=== PATIENT | female | born 1975 | race Caucasian/White ===

== ENCOUNTER 2022-09-12 13:00 | Observation (INO) | payer BC ==
[2022-09-12] MEDS ORDERED: PROVENTIL 2.5 MG/3 ML NEB IH ONE ×6 (13:03→17:05)
[2022-09-12 14:14] LABS: Absolute Neutrophil Ct (ANC) 8.94 x10^3/uL (1.4-6.9); Basophil (Absolute #) 0.04 x10^3/uL (0-0.4); Eosinophil % 4.3 % (0.00-5.0); Eosinophil (Absolute #) 0.51 x10^3/uL (0-0.5); Hematocrit 42.2 % (35-47); Lymphocyte (Absolute #) 1.62 x10^3/uL (1.0-4.6); Lymphocytes % 13.6 % (24.0-44.0); Mean Cell Volume 79.9 fL (78-100); Mean Corpuscular Hemoglobin 24.6 pg (26-32); Mean Corpuscular Hgb Concent. 30.8 g/dL (32-36); Mean Platelet Volume 10.9 fL (7.5-11.0); Monocyte (Absolute #) 0.75 x10^3/uL (0.0-1.3); Monocytes % 6.3 % (0.0-12.0); Neutrophil % 74.9 % (36.0-66.0); Platelet Count 220 x10^3/uL (150-450); Red Blood Count 5.28 x10^6/uL (4.1-5.4); Red Cell Distribution Width 15.1 % (11.5-14.0); White Blood Count 11.9 x10^3/uL (4.0-10.5)
[2022-09-12 14:38] LABS: ALBUMIN 4.4 g/dL (3.5-5.0); ALKALINE PHOSPHATASE 133 U/L (38-126); ANION GAP 12.2 MEQ/L (5-15); BLOOD UREA NITROGEN 10 mg/dL (7-17); CHLORIDE 102 mmol/L (98-107); Calcium 8.7 mg/dL (8.4-10.2); Carbon Dioxide 27 mmol/L (22-30); Creatinine 1 0.47 mg/dL (0.52-1.04); EST GLOMERULAR FILTRATION RATE > 60.0 ML/MIN; Glucose 116 mg/dL (74-106); Potassium 3.8 mmol/L (3.5-5.1); SGOT/AST 36 U/L (14-36); SGPT/ALT 31 U/L (0-35); SODIUM 137 mmol/L (137-145); Total Protein 7.9 g/dL (6.3-8.2)
--- NOTE | 2022-09-12 14:45 | XRAY ---
Indication: Short of breath. Comparison: August 29, 2022 Portable chest again demonstrates left midlung subsegmental atelectasis/scarring less than before. Remaining heart and lungs unremarkable. No new/acute findings.
[2022-09-12 14:50] LABS: INFLUENZA A NEGATIVE (NEGATIVE); INFLUENZA B NEGATIVE (NEGATIVE); RESPIRATORY SYNCTIAL VIRUS NEGATIVE (Negative); SARS-CoV-2 Xpert Express NEGATIVE (NEGATIVE)
--- NOTE | 2022-09-12 15:08 | ERPHSYRPT ---
- History of Present Illness Time Seen by Provider: 09/12/22 13:20 Source: patient Exam Limitations: no limitations Patient Subjective Stated Complaint: shortness of breath x1 week, worse today. cough as well. dx with bronchitis 1 week ago. has been on steroid and inhaler since dx. Triage Nursing Assessment: Patient presents to ED via wheelchair from [facility] for SOB. Pt wheeled to bed 8, moved self to bed, placed in gown and on monitor. Audible wheezing noted. RT called and came and gave breathing tx. 93% on room air prior to breathing tx, tachypnea noted, rate of 22. Skin pink, warm, dry. Vitals stable. States dx with bronchitis 1 week ago, prescribed steroid and inhaler. Finished with steroid rx, but has had shortness of breath and p roductive cough worse since waking up this morning. Went to [facility], was given steroid shot, but [facility] staff states pt o2 sat was 88% prior to leaving [facility] so she was brought here. Respirations easier after nebulizer treatment. Pt denies fever, headache, sore throat or body aches. After neb treatment, pt noted to be 95% on RA. Physician History: Please a 47-year-old female presents emergency department for evaluation of shortness of breath. Patient states she was diagnosed with bronchitis approximately 1 week ago. Patient was treated with steroids and antibiotics. Also received an inhaler. Symptoms were stable however patient states her shortness of breath became acutely worse. Patient went to [facility] and was evaluated. Patient received a dose of steroids. She was observed to have a O2 sat of 88%. Patient was then sent to our ED for further evaluation and treatment. Patient upon arrival was wheezing. She received a breathing treatment. We will continue work-up which will include a D-dimer. Significant other at bedside. They voiced no other complaints or concerns at this time. Portions of this note were created with voice recognition technology. There may be grammatical, spelling, punctuation or sound alike errors Timing/Duration: week(s) (1 week) Activities at Onset: none Severity of Dyspnea-Max: moderate Severity of Dyspnea-Current: mild Possible Cause: occasional episodes Modifying Factors: Improves With: activity Associated Symptoms: denies symptoms Allergies/Adverse Reactions: No Known Drug Allergies Allergy (Unverified 09/12/22 13:10) Home Medications: Omeprazole 40 mg PO DAILY 09/12/22 [History] Sertraline HCl [Zoloft] 100 mg PO DAILY 09/12/22 [History] Hx Influenza Vaccination/Date Given: No Travel Risk - International Travel Have you traveled outside of the country in past 3 weeks: No - Coronavirus Screening Symptoms: Cough: New Onset, Shortness of Breath Close contact with a COVID-19 positive Pt in past 14-21 Days: No - Vaccine Status Have you recieved a Covid-19 vaccination: No - Review of Systems Constitutional: No Symptoms, No Fever, No Chills Eyes: No Symptoms Ears, Nose, & Throat: No Symptoms Respiratory: No Symptoms, No Cough, No Dyspnea Cardiac: No Symptoms, No Chest Pain, No Edema, No Syncope Abdominal/Gastrointestinal: No Symptoms, No Abdominal Pain, No Nausea, No Vomiting, No Diarrhea Genitourinary Symptoms: No Symptoms, No Dysuria Musculoskeletal: No Symptoms, No Back Pain, No Neck Pain Skin: No Symptoms, No Rash Neurological: No Symptoms, No Dizziness, No Focal Weakness, No Sensory Changes Psychological: No Symptoms Endocrine: No Symptoms Hematologic/Lymphatic: No Symptoms Immunological/Allergic: No Symptoms All Other Systems: Reviewed and Negative - Past Medical History Pertinent Past Medical History: Yes Other Medical History: a fib - Past Surgical History Past Surgical History: Yes Gastrointestinal: Cholecystectomy Other Surgical History: lithotripsy - Social History Smoking Status: Never smoker Drug Use: none Patient Lives Alone: No - Female History Hx Last Menstrual Period: Aug 09 Hx Now: No - Nursing Vital Signs Nursing Vital Signs: Initial Vital Signs Temperature 98.5 F 09/12/22 13:03 Pulse Rate 86 09/12/22 13:03 Respiratory Rate 22 09/12/22 13:03 Blood Pressure 170/108 09/12/22 13:03 O2 Sat by Pulse Oximetry 94 L 09/12/22 13:03 Pain Scale Pain Intensity 2 - Physical Exam General Appearance: mild distress, alert Eye Exam: PERRL/EOMI Ears, Nose, Throat Exam: hearing grossly normal, normal ENT inspection, normal pharynx Neck Exam: normal inspection, supple, full range of motion Respiratory Exam: diminished breath sounds, wheezing Cardiovascular/Chest Exam: normal heart sounds, regular rate/rhythm Abdominal/Gastrointestinal Exam: soft, No tenderness, No distention, No mass Extremity Exam: non-tender, normal range of motion, normal inspection, no calf tenderness, no pedal edema Neurologic Exam: alert, oriented x 3, cooperative, seo manager II-XII nml as tested, sensation nml, No motor deficits Skin Exam: normal color, warm, No dry SpO2 Interpretation: normal SpO2: 97 O2 Delivery: Room Air - Course Nursing assessment & vital signs reviewed: Yes EKG Interpreted by Me: RATE (83), Sinus Rhythm, NORMAL AXIS, NORMAL INTERVALS - CT Exams Chest CT Interpretation: Tele-radiologist Report (Borderline cardiomegaly, no pulm onary embolus. Spine arthritis. Diffuse fatty liver. Splenomegaly) Ordered Tests: Active Orders 24 hr Category Date Time Status Drill Sharpener STAT Care 09/12/22 13:38 Active EKG-ER Only STAT Care 09/12/22 13:36 Active IV Insertion STAT Care 09/12/22 13:36 Active Pulse Oximetry (ED) STAT Care 09/12/22 13:36 Active CHEST 1 VIEW (PORTABLE) Stat Exams 09/12/22 13:37 Completed CHEST WITH CONTRAST [CT] Stat Exams 09/12/22 15:00 Completed BLOOD CULTURE Stat Lab 09/12/22 14:06 Received CBC W DIFF Stat Lab 09/12/22 14:06 Completed CMP Stat Lab 09/12/22 14:06 Completed D-DIMER QUANTITATIVE Stat Lab 09/12/22 14:06 Completed NT PRO BNP Stat Lab 09/12/22 14:06 Completed TROPONIN Q4H Lab 09/12/22 14:06 Completed TROPONIN Q4H Lab 09/12/22 17:45 Ordered TROPONIN Q4H Lab 09/12/22 21:45 Ordered Respiratory Therapy Assessment DAILY RT 09/12/22 13:07 Completed Respiratory Therapy Assessment DAILY RT 09/12/22 14:06 Active Transfer Order Routine Transfer 09/12/22 Ordered Medication Summary Generic Name Dose Route Start Last Admin Trade Name Freq PRN Reason Stop Dose Admin Magnesium Sulfate/Dextrose 100 mls @ 100 mls/hr 09/12/22 17:00 09/12/22 17:25 Magnesium 1 Gm / 100 Ml D5w IV 09/12/22 18:59 100 mls/hr Q1H REKHA Administration Ceftriaxone Sodium/Dextrose 2 g in 50 mls @ 100 mls/hr 09/12/22 17:36 Rocephin 2 Gm-D5w 50ml Bag IV 09/12/22 18:05 STAT STA Azithromycin 500 mg in 250 mls @ 250 mls/hr 09/12/22 17:36 Zithromax 500 Mg/ 250 Ml Nacl Premix IV 09/12/22 18:35 STAT STA Discontinued Medications Generic Name Dose Route Start Last Admin Trade Name Freq PRN Reason Stop Dose Admin Albuterol Sulfate 2.5 mg 09/12/22 13:03 09/12/22 13:06 Albuterol Sulfate 2.5 Mg/3 Ml Neb IH 09/12/22 13:04 2.5 mg STAT ONE Administration Albuterol Sulfate 2.5 mg 09/12/22 13:39 09/12/22 14:05 Albuterol Sulfate 2.5 Mg/3 Ml Neb IH 09/12/22 13:40 2.5 mg STAT ONE Administration Albuterol Sulfate Confirm 09/12/22 14:04 Albuterol Sulfate 2.5 Mg/3 Ml Neb Administered 09/12/22 14:05 Dose 2.5 mg IH .STK-MED ONE Albuterol Sulfate Confirm 09/12/22 13:03 Albuterol Sulfate 2.5 Mg/3 Ml Neb Administered 09/12/22 13:04 Dose 2.5 mg IH .STK-MED ONE Albuterol Sulfate 2.5 mg 09/12/22 16:43 09/12/22 17:06 Albuterol Sulfate 2.5 Mg/3 Ml Neb IH 09/12/22 16:44 2.5 mg STAT ONE Administration Albuterol Sulfate Confirm 09/12/22 17:05 Albuterol Sulfate 2.5 Mg/3 Ml Neb Administered 09/12/22 17:06 Dose 2.5 mg IH .STK-MED ONE Lab/Rad Data: Laboratory Result Diagrams 09/12/22 14:06 09/12/22 14:06 Laboratory Results 09/12/22 09/12/22 09/12/22 Range/Units 14:06 14:06 14:06 WBC (4.0-10.5) x10^3/uL RBC (4.1-5.4) x10^6/uL Hgb (12.0-16.0) g/dL Hct (35-47) % MCV (78-100) fL MCH (26-32) pg MCHC (32-36) g/dL RDW (11.5-14.0) % Plt Count (150-450) x10^3/uL MPV (7.5-11.0) fL Gran % (36.0-66.0) % Immature Gran % (Auto) (0.00-0.4) % Nucleat RBC Rel Count (0.00-0.1) % Eos # (Auto) (0-0.5) x10^3/uL Immature Gran # (Auto) (0.00-0.03) x10^3u/L Absolute Lymphs (auto) (1.0-4.6) x10^3/uL Absolute Monos (auto) (0.0-1.3) x10^3/uL Absolute Nucleated RBC (0.00-0.01) x10^3u/L Lymphocytes % (24.0-44.0) % Monocytes % (0.0-12.0) % Eosinophils % (0.00-5.0) % Basophils % (0.0-0.4) % Absolute Granulocytes (1.4-6.9) x10^3/uL Basophils # (0-0.4) x10^3/uL D-Dimer 0.94 H* (0.0-0.50) mg/L Sodium (137-145) mmol/L Potassium (3.5-5.1) mmol/L Chloride (98-107) mmol/L Carbon Dioxide (22-30) mmol/L Anion Gap (5-15) MEQ/L BUN (7-17) mg/dL Creatinine (0.52-1.04) mg/dL Estimated GFR ML/MIN Glucose (74-106) mg/dL Calcium (8.4-10.2) mg/dL Total Bilirubin (0.2-1.3) mg/dL AST (14-36) U/L ALT (0-35) U/L Alkaline Phosphatase (38-126) U/L Troponin I < 0.012 (0.000-0.034) ng/mL NT-Pro-B Natriuret Pep (0-450) pg/mL Serum Total Protein (6.3-8.2) g/dL Albumin (3.5-5.0) g/dL Influenza Type A Ag NEGATIVE (NEGATIVE) Influenza Type B Ag NEGATIVE (NEGATIVE) RSV (PCR) NEGATIVE (Negative) SARS-CoV-2 (PCR) NEGATIVE (NEGATIVE) 09/12/22 09/12/22 Range/Units 14:06 14:06 WBC 11.9 H (4.0-10.5) x10^3/uL RBC 5.28 (4.1-5.4) x10^6/uL Hgb 13.0 (12.0-16.0) g/dL Hct 42.2 (35-47) % MCV 79.9 (78-100) fL MCH 24.6 L (26-32) pg MCHC 30.8 L (32-36) g/dL RDW 15.1 H (11.5-14.0) % Plt Count 220 (150-450) x10^3/uL MPV 10.9 (7.5-11.0) fL Gran % 74.9 H (36.0-66.0) % Immature Gran % (Auto) 0.6 H (0.00-0.4) % Nucleat RBC Rel Count 0.0 (0.00-0.1) % Eos # (Auto) 0.51 H (0-0.5) x10^3/uL Immature Gran # (Auto) 0.07 H (0.00-0.03) x10^3u/L Absolute Lymphs (auto) 1.62 (1.0-4.6) x10^3/uL Absolute Monos (auto) 0.75 (0.0-1.3) x10^3/uL Absolute Nucleated RBC 0.00 (0.00-0.01) x10^3u/L Lymphocytes % 13.6 L (24.0-44.0) % Monocytes % 6.3 (0.0-12.0) % Eosinophils % 4.3 (0.00-5.0) % Basophils % 0.3 (0.0-0.4) % Absolute Granulocytes 8.94 H (1.4-6.9) x10^3/uL Basophils # 0.04 (0-0.4) x10^3/uL D-Dimer (0.0-0.50) mg/L Sodium 137 (137-145) mmol/L Potassium 3.8 (3.5-5.1) mmol/L Chloride 102 (98-107) mmol/L Carbon Dioxide 27 (22-30) mmol/L Anion Gap 12.2 (5-15) MEQ/L BUN 10 (7-17) mg/dL Creatinine 0.47 L (0.52-1.04) mg/dL Estimated GFR > 60.0 ML/MIN Glucose 116 H (74-106) mg/dL Calcium 8.7 (8.4-10.2) mg/dL Total Bilirubin 0.90 (0.2-1.3) mg/dL AST 36 (14-36) U/L ALT 31 (0-35) U/L Alkaline Phosphatase 133 H (38-126) U/L Troponin I (0.000-0.034) ng/mL NT-Pro-B Natriuret Pep 95.0 (0-450) pg/mL Serum Total Protein 7.9 (6.3-8.2) g/dL Albumin 4.4 (3.5-5.0) g/dL Influenza Type A Ag (NEGATIVE) Influenza Type B Ag (NEGATIVE) RSV (PCR) (Negative) SARS-CoV-2 (PCR) (NEGATIVE) - Progress Progress: improved Air Movement: good Progress Note: Patient reassessed. Patient continues to wheeze. Breath sounds diminished. Patient ambulated in our ED and desaturated down to 88%. Patient was significantly short of breath. CT chest negative for PE. Patient treated in our ED for approximately 4 to 5 hours. There was some improvement. However patient does not meet our discharge criteria. Patient will be admitted for further evaluation and treatment. Case discussed with Dr. Mills who accepts patient to observation. Plan of care discussed with patient. She agrees to admission at [facility] for further evaluation and gera tment. Portions of this note were created with voice recognition technology. There may be grammatical, spelling, punctuation or sound alike errors 09/12/22 17:37 Blood Culture(s) Obtained: No Antibiotics given: No Counseled pt/family regarding: lab results, diagnosis, need for follow-up, rad results - Departure Departure Disposition: Home Clinical Impression: Bronchitis Condition: Stable Critical Care Time: No Referrals: DOCTOR,NO FAMILY [Primary Care Provider] - Follow up/PCP as directed LALITO FERNANDEZ [ACTIVE STAFF] - Follow up/PCP as directed Additional Instructions: Discharge/Care Plan AMRY ODELL was seen on 09/12/22 in the Emergency Room. The patient was counseled regarding Diagnosis,Lab results, Imaging studies, need for follow up and when to return to the Emergency Room. Prescriptions given: Discharge Note I have spoken with the patient and/or caregivers. I have explained the patient's condition, diagnosis and treatment plan based on the information available to me at this time. I have answered the patient's and/or caregiver's questions and addressed any concerns. The patient and/or caregivers have as good understanding of the patient's diagnosis, condition and treatment plan as can be expected at this point. The vital signs have been stable. The patient's condition is stable and appropriate for discharge from the emergency department. The patient will pursue further outpatient evaluation with the primary care physician or other designated or consulting physician as outlined in the dis charge instructions. The patient and/or caregivers are agreeable to this plan of care and follow-up instructions have been explained in detail. The patient and/or caregivers have received these instruction. The patient/and or caregivers are aware that any significant change in condition or worsening of symptoms should prompt an immediate return to this or the closest emergency department or call 911.
--- NOTE | 2022-09-12 16:17 | XRAY ---
Indication: Short of breath. Elevated d-dimer. Atrial fibrillation. Multiple contiguous axial images obtained through the chest using 100 cc Isovue 370 contrast and PE protocol. Suboptimal opacification of the pulmonary arteries and mild diffuse respiration artifact limits evaluation for pulmonary embolus. No obvious central pulmonary embolus. Heart is borderline enlarged. Aorta is normal in course and caliber. No pathologic mediastinal/hilar lymphadenopathy. Lungs demonstrates minimal left mid to lower lung and lesser degree inferior right upper lobe subsegmental atelectasis/scarring. Small nonspecific left effusion. No pneumothorax. Bony thorax intact with mild degenerative changes throughout the spine. Limited upper abdomen demonstrates diffuse fatty liver and 15.1 cm splenomegaly. Impression: 1. Pulmonary embolus limited by suboptimal contrast opacification and respiration artifact. No obvious central pulmonary embolus. 2. Borderline cardiomegaly, minimal bilateral subsegmental atelectasis/scarring, and small nonspecific left effusion. 3. Incidental fatty liver and splenomegaly.
[2022-09-12] MEDS ORDERED: Magnesium 1 Gm / 100 Ml D5W*** 100 ML IV ONE ×2 (16:53→17:25)
[2022-09-12] MEDS: Magnesium 1 Gm / 100 Ml D5W*** 100 ML IV SCH ×2 (16:54→17:25)
[2022-09-12] MEDS ORDERED: ROCEPHIN 2 Gm-D5w 50ML BAG** 2 G/50 ML IVPB IV STA (17:36)
[2022-09-12] MEDS ORDERED: Zithromax 500 MG/ 250 ML NaCl Premix 500 MG/250 ML IVPB IV STA (17:36)
[2022-09-12] MEDS ORDERED: solu-MEDROL ONE (18:58)
[2022-09-12] MEDS ORDERED: ROCEPHIN 2 Gm-D5w 50ML BAG** 2 G/50 ML IVPB IV ONE (19:00)
[2022-09-12] MEDS ORDERED: PROVENTIL 2.5 MG/3 ML NEB IH SCH (19:00)
[2022-09-12] MEDS ORDERED: Sterile H2O 10 ml IJ ONE (19:01)
[2022-09-12] MEDS: solu-MEDROL 60 MG, Sterile H2O 10 ml 2 ML IV SCH ×2 (19:07)
[2022-09-12] MEDS: Zithromax 500 MG/ 250 ML NaCl Premix 500 MG/250 ML IVPB IV SCH (19:43)
[2022-09-12] MEDS: TYLENOL 325 MG PO PRN (19:53)
[2022-09-12] MEDS ORDERED: Zofran 4 MG/2 ML VIAL IV PRN (20:32)
[2022-09-12] MEDS ORDERED: Lactated Ringers 1,000 ML IV ONE (20:32)
[2022-09-12] MEDS: Lactated Ringers 1,000 ML IV SCH (21:53)
[2022-09-12] MEDS: PROVENTIL 2.5 MG/3 ML NEB IH SCH (22:37)
[2022-09-13] MEDS: solu-MEDROL 60 MG, Sterile H2O 10 ml 2 ML IV SCH ×8 (00:03→17:16)
[2022-09-13] MEDS: PROVENTIL 2.5 MG/3 ML NEB IH SCH ×5 (03:35→18:25)
[2022-09-13 04:56] LABS: Hematocrit 39.1 % (35-47); Hemoglobin 12.1 g/dL (12.0-16.0); Mean Corpuscular Hemoglobin 24.7 pg (26-32); Mean Corpuscular Hgb Concent. 30.9 g/dL (32-36); Mean Platelet Volume 10.8 fL (7.5-11.0); Platelet Count 215 x10^3/uL (150-450); Red Blood Count 4.89 x10^6/uL (4.1-5.4); White Blood Count 14.6 x10^3/uL (4.0-10.5)
[2022-09-13 05:25] LABS: ALBUMIN 3.8 g/dL (3.5-5.0); ALKALINE PHOSPHATASE 117 U/L (38-126); BLOOD UREA NITROGEN 8 mg/dL (7-17); CHLORIDE 104 mmol/L (98-107); Calcium 8.4 mg/dL (8.4-10.2); Carbon Dioxide 27 mmol/L (22-30); Creatinine 1 0.43 mg/dL (0.52-1.04); EST GLOMERULAR FILTRATION RATE > 60.0 ML/MIN; Glucose 191 mg/dL (74-106); Potassium 4.3 mmol/L (3.5-5.1); SGOT/AST 23 U/L (14-36); SGPT/ALT 27 U/L (0-35); SODIUM 133 mmol/L (137-145); Total Protein 6.9 g/dL (6.3-8.2)
[2022-09-13] MEDS ORDERED: solu-MEDROL ONE ×2 (05:43)
[2022-09-13] MEDS ORDERED: Sterile H2O 10 ml IJ ONE ×2 (05:43)
[2022-09-13] MEDS ORDERED: PROVENTIL Solution 2.5 MG/0.5 ML IH ONE (06:44)
[2022-09-13] MEDS ORDERED: DUONEB 0.5-3 MG/3 ml Neb IH ONE (06:44)
[2022-09-13] MEDS: Lactated Ringers 1,000 ML IV SCH ×2 (08:26→18:17)
--- NOTE | 2022-09-13 09:07 | PCM.HP ---
History of Present Illness - Chief Complaint Chief Complaint: Bronchitis History of Present Illness: is a 47 year old female pt with obesity, GERD, and anxiety who was admitted through ER with respiratory infection. She has been wheezing since June - went to walk in clinic a couple of times, got steroids and nebulizers and would temporarily seem better then worsen. Yesterday she was worse again - went to , was wheezing and struggling to talk. Given steroid injection. In ER, given nebs x 3 and Mg, with 40mg IV steroid started BID. D-dimer was elevated, but CTA chest neg for PE. O2 down to 88% wtih walking (on RA). - Review of Systems Respiratory: Cough, Short Of Breath Abdominal/Gastrointestinal: Vomiting (x 1 yest) Neurological: Dizziness (with walking yesterday) Medications & Allergies Home Medications: Home Medication List Albuterol Sulfate 2.5 mg IH Q4H 09/12/22 [History Confirmed 09/12/22] Omeprazole 40 mg PO DAILY 09/12/22 [History Confirmed 09/12/22] Sertraline HCl [Zoloft] 100 mg PO DAILY 09/12/22 [History Confirmed 09/12/22] Allergies/Adverse Reactions: Allergies Allergy/AdvReac Type Severity Reaction Status Date / Time No Known Drug Allergies Allergy Unverified 09/12/22 13:10 - Past Medical History Past Medical History: Yes Comment: a fib stress induced where pt had to be cardioverted. 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 no arrythmias noted stated "stress induced" - Female History Hx Last Menstrual Period: Aug 09 Are you now?: No - Past Surgical History Past Surgical History: Yes GI Surgical History: Cholecystectomy Other Surgical History: lithotripsy - Social History Smoking Status: Never smoker Alcohol: Occasionally Drug Use: none - Physical Exam Vital Signs: Vital Signs - 24 hr Temp Pulse Resp BP Pulse Ox 09/13/22 07:19 97.9 F 90 16 124/77 93 L 09/13/22 06:53 90 16 93 L 09/13/22 04:00 96.9 F 78 16 130/64 91 L 09/13/22 03:35 94 H 17 95 09/12/22 23:15 96.2 F 97 H 16 107/61 91 L 09/12/22 22:40 94 H 16 95 12/19/22 18:22 97.5 F 86 16 135/74 95 09/12/22 18:10 86 16 95 09/12/22 17:57 97.5 F 92 H 18 135/74 93 L 09/12/22 17:39 97 09/12/22 17:12 79 22 126/72 100 09/12/22 17:10 84 20 94 L 09/12/22 16:05 68 20 140/72 98 09/12/22 15:09 98.5 F 74 20 144/87 98 09/12/22 14:30 98.5 F 78 22 148/88 97 09/12/22 14:12 95 09/12/22 14:06 92 H 22 94 L 09/12/22 13:07 88 24 94 L 09/12/22 13:03 98.5 F 86 22 170/108 93 L General Appearance: no apparent distress, obese Neurologic Exam: alert, oriented x 3, cooperative Eye Exam: eyes nml inspection Ears, Nose, Throat Exam: moist mucous membranes Neck Exam: normal inspection, non-tender, No lymphadenopathy, No thyromegaly Respiratory Exam: diminished breath sounds (good air exchange), No crackles/rales, No rhonchi, No wheezing Cardiovascular Exam: regular rate/rhythm, normal heart sounds, No murmur Gastrointestinal/Abdomen Exam: soft, normal bowel sounds, No tenderness, No distention, No mass, No guarding, No rebound Extremity Exam: normal inspection, No pedal edema, No swelling Skin Exam: normal color, warm, dry, No rash Results - Labs Lab/Micro Results: Lab Results-Last 24 Hours 09/12/22 09/12/22 09/12/22 Range/Units 14:06 14:06 14:06 WBC 11.9 H (4.0-10.5) x10^3/uL RBC 5.28 (4.1-5.4) x10^6/uL Hgb 13.0 (12.0-16.0) g/dL Hct 42.2 (35-47) % MCV 79.9 (78-100) fL MCH 24.6 L (26-32) pg MCHC 30.8 L (32-36) g/dL RDW 15.1 H (11.5-14.0) % Plt Count 220 (150-450) x10^3/uL MPV 10.9 (7.5-11.0) fL Gran % 74.9 H (36.0-66.0) % Immature Gran % (Auto) 0.6 H (0.00-0.4) % Nucleat RBC Rel Count 0.0 (0.00-0.1) % Eos # (Auto) 0.51 H (0-0.5) x10^3/uL Immature Gran # (Auto) 0.07 H (0.00-0.03) x10^3u/L Absolute Lymphs (auto) 1.62 (1.0-4.6) x10^3/uL Absolute Monos (auto) 0.75 (0.0-1.3) x10^3/uL Absolute Nucleated RBC 0.00 (0.00-0.01) x10^3u/L Lymphocytes % 13.6 L (24.0-44.0) % Monocytes % 6.3 (0.0-12.0) % Eosinophils % 4.3 (0.00-5.0) % Basophils % 0.3 (0.0-0.4) % Absolute Granulocytes 8.94 H (1.4-6.9) x10^3/uL Basophils # 0.04 (0-0.4) x10^3/uL D-Dimer 0.94 H* (0.0-0.50) mg/L Sodium 137 (137-145) mmol/L Potassium 3.8 (3.5-5.1) mmol/L Chloride 102 (98-107) mmol/L Carbon Dioxide 27 (22-30) mmol/L Anion Gap 12.2 (5-15) MEQ/L BUN 10 (7-17) mg/dL Creatinine 0.47 L (0.52-1.04) mg/dL Estimated GFR > 60.0 ML/MIN Glucose 116 H (74-106) mg/dL Calcium 8.7 (8.4-10.2) mg/dL Magnesium (1.6-2.3) mg/dL Total Bilirubin 0.90 (0.2-1.3) mg/dL AST 36 (14-36) U/L ALT 31 (0-35) U/L Alkaline Phosphatase 133 H (38-126) U/L Troponin I (0.000-0.034) ng/mL NT-Pro-B Natriuret Pep 95.0 (0-450) pg/mL Serum Total Protein 7.9 (6.3-8.2) g/dL Albumin 4.4 (3.5-5.0) g/dL Influenza Type A Ag (NEGATIVE) Influenza Type B Ag (NEGATIVE) RSV (PCR) (Negative) SARS-CoV-2 (PCR) (NEGATIVE) 09/12/22 09/12/22 09/12/22 Range/Units 14:06 14:06 19:08 WBC (4.0-10.5) x10^3/uL RBC (4.1-5.4) x10^6/uL Hgb (12.0-16.0) g/dL Hct (35-47) % MCV (78-100) fL MCH (26-32) pg MCHC (32-36) g/dL RDW (11.5-14.0) % Plt Count (150-450) x10^3/uL MPV (7.5-11.0) fL Gran % (36.0-66.0) % Immature Gran % (Auto) (0.00-0.4) % Nucleat RBC Rel Count (0.00-0.1) % Eos # (Auto) (0-0.5) x10^3/uL Immature Gran # (Auto) (0.00-0.03) x10^3u/L Absolute Lymphs (auto) (1.0-4.6) x10^3/uL Absolute Monos (auto) (0.0-1.3) x10^3/uL Absolute Nucleated RBC (0.00-0.01) x10^3u/L Lymphocytes % (24.0-44.0) % Monocytes % (0.0-12.0) % Eosinophils % (0.00-5.0) % Basophils % (0.0-0.4) % Absolute Granulocytes (1.4-6.9) x10^3/uL Basophils # (0-0.4) x10^3/uL D-Dimer (0.0-0.50) mg/L Sodium (137-145) mmol/L Potassium (3.5-5.1) mmol/L Chloride (98-107) mmol/L Carbon Dioxide (22-30) mmol/L Anion Gap (5-15) MEQ/L BUN (7-17) mg/dL Creatinine (0.52-1.04) mg/dL Estimated GFR ML/MIN Glucose (74-106) mg/dL Calcium (8.4-10.2) mg/dL Magnesium (1.6-2.3) mg/dL Total Bilirubin (0.2-1.3) mg/dL AST (14-36) U/L ALT (0-35) U/L Alkaline Phosphatase (38-126) U/L Troponin I < 0.012 < 0.012 (0.000-0.034) ng/mL NT-Pro-B Natriuret Pep (0-450) pg/mL Serum Total Protein (6.3-8.2) g/dL Albumin (3.5-5.0) g/dL Influenza Type A Ag NEGATIVE (NEGATIVE) Influenza Type B Ag NEGATIVE (NEGATIVE) RSV (PCR) NEGATIVE (Negative) SARS-CoV-2 (PCR) NEGATIVE (NEGATIVE) 09/12/22 09/13/22 09/13/22 Range/Units 20:29 04:30 04:30 WBC 14.6 H (4.0-10.5) x10^3/uL RBC 4.89 (4.1-5.4) x10^6/uL Hgb 12.1 (12.0-16.0) g/dL Hct 39.1 (35-47) % MCV 80.0 (78-100) fL MCH 24.7 L (26-32) pg MCHC 30.9 L (32-36) g/dL RDW 15.0 H (11.5-14.0) % Plt Count 215 (150-450) x10^3/uL MPV 10.8 (7.5-11.0) fL Gran % (36.0-66.0) % Immature Gran % (Auto) (0.00-0.4) % Nucleat RBC Rel Count (0.00-0.1) % Eos # (Auto) (0-0.5) x10^3/uL Immature Gran # (Auto) (0.00-0.03) x10^3u/L Absolute Lymphs (auto) (1.0-4.6) x10^3/uL Absolute Monos (auto) (0.0-1.3) x10^3/uL Absolute Nucleated RBC (0.00-0.01) x10^3u/L Lymphocytes % (24.0-44.0) % Monocytes % (0.0-12.0) % Eosinophils % (0.00-5.0) % Basophils % (0.0-0.4) % Absolute Granulocytes (1.4-6.9) x10^3/uL Basophils # (0-0.4) x10^3/uL D-Dimer (0.0-0.50) mg/L Sodium 133 L (137-145) mmol/L Potassium 4.3 (3.5-5.1) mmol/L Chloride 104 (98-107) mmol/L Carbon Dioxide 27 (22-30) mmol/L Anion Gap 7.0 (5-15) MEQ/L BUN 8 (7-17) mg/dL Creatinine 0.43 L (0.52-1.04) mg/dL Estimated GFR > 60.0 ML/MIN Glucose 191 H (74-106) mg/dL Calcium 8.4 (8.4-10.2) mg/dL Magnesium (1.6-2.3) mg/dL Total Bilirubin 0.40 (0.2-1.3) mg/dL AST 23 (14-36) U/L ALT 27 (0-35) U/L Alkaline Phosphatase 117 (38-126) U/L Troponin I < 0.012 (0.000-0.034) ng/mL NT-Pro-B Natriuret Pep (0-450) pg/mL Serum Total Protein 6.9 (6.3-8.2) g/dL Albumin 3.8 (3.5-5.0) g/dL Influenza Type A Ag (NEGATIVE) Influenza Type B Ag (NEGATIVE) RSV (PCR) (Negative) SARS-CoV-2 (PCR) (NEGATIVE) 09/13/22 Range/Units 04:30 WBC (4.0-10.5) x10^3/uL RBC (4.1-5.4) x10^6/uL Hgb (12.0-16.0) g/dL Hct (35-47) % MCV (78-100) fL MCH (26-32) pg MCHC (32-36) g/dL RDW (11.5-14.0) % Plt Count (150-450) x10^3/uL MPV (7.5-11.0) fL Gran % (36.0-66.0) % Immature Gran % (Auto) (0.00-0.4) % Nucleat RBC Rel Count (0.00-0.1) % Eos # (Auto) (0-0.5) x10^3/uL Immature Gran # (Auto) (0.00-0.03) x10^3u/L Absolute Lymphs (auto) (1.0-4.6) x10^3/uL Absolute Monos (auto) (0.0-1.3) x10^3/uL Absolute Nucleated RBC (0.00-0.01) x10^3u/L Lymphocytes % (24.0-44.0) % Monocytes % (0.0-12.0) % Eosinophils % (0.00-5.0) % Basophils % (0.0-0.4) % Absolute Granulocytes (1.4-6.9) x10^3/uL Basophils # (0-0.4) x10^3/uL D-Dimer (0.0-0.50) mg/L Sodium (137-145) mmol/L Potassium (3.5-5.1) mmol/L Chloride (98-107) mmol/L Carbon Dioxide (22-30) mmol/L Anion Gap (5-15) MEQ/L BUN (7-17) mg/dL Creatinine (0.52-1.04) mg/dL Estimated GFR ML/MIN Glucose (74-106) mg/dL Calcium (8.4-10.2) mg/dL Magnesium 2.2 (1.6-2.3) mg/dL Total Bilirubin (0.2-1.3) mg/dL AST (14-36) U/L ALT (0-35) U/L Alkaline Phosphatase (38-126) U/L Troponin I (0.000-0.034) ng/mL NT-Pro-B Natriuret Pep (0-450) pg/mL Serum Total Protein (6.3-8.2) g/dL Albumin (3.5-5.0) g/dL Influenza Type A Ag (NEGATIVE) Influenza Type B Ag (NEGATIVE) RSV (PCR) (Negative) SARS-CoV-2 (PCR) (NEGATIVE) - Radiology Impressions Radiology Exams & Impressions: Radiology Procedures Category Date Time Status CHEST 1 VIEW (PORTABLE) Stat Exams 09/12/22 13:37 Completed CHEST WITH CONTRAST [CT] Stat Exams 09/12/22 15:00 Completed - Other Procedures and Tests Respiratory Therapy 09/12/22 14:06 Respiratory Therapy Assessment DAILY Assessment/Plan (1) Respiratory infection Current Visit: Yes Status: Acute Assessment & Plan: With long course, treating for pneumonia with IV abx although CXR neg and CTA chest nonacute. IV steroids. Code(s): J98.8 - OTHER SPECIFIED RESPIRATORY DISORDERS
[2022-09-13] MEDS: Zithromax 500 MG/ 250 ML NaCl Premix 500 MG/250 ML IVPB IV SCH (09:08)
[2022-09-13] MEDS: TYLENOL 325 MG PO PRN (09:09)
[2022-09-13] MEDS ORDERED: NON-FORMULARY ITEM (Sertraline Hcl [Zoloft] 100 MG Tablet) PO SCH (10:00)
[2022-09-13] MEDS ORDERED: NON-FORMULARY ITEM (Omeprazole [Omeprazole] 40 MG Capsule.Dr) PO SCH (10:00)
[2022-09-13] MEDS: ZOLOFT 50 MG TABLET PO SCH (10:17)
[2022-09-13] MEDS: Protonix 40MG Tablet PO SCH (10:17)
[2022-09-13] MEDS: ENOXAPARIN SODIUM SQ SCH (17:15)
[2022-09-13] MEDS ORDERED: ROCEPHIN 2 Gm-D5w 50ML BAG** 2 G/50 ML IVPB IV ONE (19:00)
[2022-09-13] MEDS ORDERED: Zithromax 500 MG/ 250 ML NaCl Premix 500 MG/250 ML IVPB IV SCH ×2 (20:00→22:00)
[2022-09-13] MEDS ORDERED: ROCEPHIN 1 Gm-D5w 50 ml Bag** 1 G/50 ML IVPB IV SCH (22:00)
[2022-09-14] MEDS: solu-MEDROL 60 MG, Sterile H2O 10 ml 2 ML IV SCH ×4 (00:51→05:48)
[2022-09-14] MEDS: Lactated Ringers 1,000 ML IV SCH (04:02)
[2022-09-14 05:14] LABS: Absolute Neutrophil Ct (ANC) 20.79 x10^3/uL (1.4-6.9); Basophil (Absolute #) 0.03 x10^3/uL (0-0.4); Eosinophil (Absolute #) 0 x10^3/uL (0-0.5); Hematocrit 36.6 % (35-47); Hemoglobin 11.8 g/dL (12.0-16.0); Lymphocyte (Absolute #) 0.76 x10^3/uL (1.0-4.6); Lymphocytes % 3.4 % (24.0-44.0); Mean Cell Volume 80.3 fL (78-100); Mean Corpuscular Hemoglobin 25.9 pg (26-32); Mean Corpuscular Hgb Concent. 32.2 g/dL (32-36); Mean Platelet Volume 11.7 fL (7.5-11.0); Monocyte (Absolute #) 0.52 x10^3/uL (0.0-1.3); Monocytes % 2.3 % (0.0-12.0); Neutrophil % 93.5 % (36.0-66.0); Platelet Count 263 x10^3/uL (150-450); Red Blood Count 4.56 x10^6/uL (4.1-5.4); Red Cell Distribution Width 15.6 % (11.5-14.0); White Blood Count 22.3 x10^3/uL (4.0-10.5)
[2022-09-14 05:55] LABS: ALBUMIN 3.5 g/dL (3.5-5.0); ALKALINE PHOSPHATASE 106 U/L (38-126); ANION GAP 8.9 MEQ/L (5-15); BLOOD UREA NITROGEN 12 mg/dL (7-17); CHLORIDE 103 mmol/L (98-107); Calcium 8.4 mg/dL (8.4-10.2); Carbon Dioxide 27 mmol/L (22-30); EST GLOMERULAR FILTRATION RATE > 60.0 ML/MIN; Glucose 191 mg/dL (74-106); Potassium 4.4 mmol/L (3.5-5.1); SGOT/AST 21 U/L (14-36); SGPT/ALT 24 U/L (0-35); SODIUM 134 mmol/L (137-145); Total Protein 6.4 g/dL (6.3-8.2)
[2022-09-14] MEDS ORDERED: PROVENTIL 2.5 MG/3 ML NEB IH SCH (07:00)
[2022-09-14 07:29] VITALS: BP 112/61; PULSE 61; O2SAT 97
[2022-09-14 07:42] LABS: Slide Review 1 YES
[2022-09-14] MEDS: Protonix 40MG Tablet PO SCH (09:20)
[2022-09-14] MEDS: ZOLOFT 50 MG TABLET PO SCH (09:20)
[2022-09-14] MEDS: ENOXAPARIN SODIUM SQ SCH (09:21)
--- NOTE | 2022-09-14 09:41 | PCM.DS ---
Discharge Summary Date of Admission: 09/12/22 17:45 Admitting Physician: LALITO FERNANDEZ Primary Care Provider: NO FAMILY DOCTOR Allergies Allergies No Known Drug Allergies Allergy (Unverified 09/12/22 13:10) Hospital Summary - Hospital Course Hospital Course: patient admitted with cough, wheezing and shortness of breath. no hx of copd or asthma. treated with abx, nebs and steroids. feeling much better today. no oxygen requirement and very talkative, in no distress. - Vitals & Intake/Output Vital Signs: Vital Signs Temperature 96.9 F 09/14/22 07:28 Pulse Rate 61 09/14/22 07:28 Respiratory Rate 16 09/14/22 07:28 Blood Pressure 112/61 09/14/22 07:28 O2 Sat by Pulse Oximetry 97 09/14/22 07:28 Intake & Output: Intake & Output 09/11/22 09/12/22 09/13/22 09/14/22 11:59 11:59 11:59 11:59 Intake Total 840 4512 Output Total 400 650 Balance 440 3862 Weight 146.5 kg 146.7 kg - Lab Result Diagrams: 09/14/22 04:32 09/14/22 04:32 Lab Results-Last 24 Hrs: Lab Results-Last 24 Hours 09/14/22 09/14/22 Range/Units 04:32 04:32 WBC 22.3 H (4.0-10.5) x10^3/uL RBC 4.56 (4.1-5.4) x10^6/uL Hgb 11.8 L (12.0-16.0) g/dL Hct 36.6 (35-47) % MCV 80.3 (78-100) fL MCH 25.9 L (26-32) pg MCHC 32.2 (32-36) g/dL RDW 15.6 H (11.5-14.0) % Plt Count 263 (150-450) x10^3/uL MPV 11.7 H (7.5-11.0) fL Gran % 93.5 H (36.0-66.0) % Immature Gran % (Auto) 0.7 H (0.00-0.4) % Nucleat RBC Rel Count 0.0 (0.00-0.1) % Eos # (Auto) 0 (0-0.5) x10^3/uL Immature Gran # (Auto) 0.16 H (0.00-0.03) x10^3u/L Absolute Lymphs (auto) 0.76 L (1.0-4.6) x10^3/uL Absolute Monos (auto) 0.52 (0.0-1.3) x10^3/uL Absolute Nucleated RBC 0.00 (0.00-0.01) x10^3u/L Lymphocytes % 3.4 L (24.0-44.0) % Monocytes % 2.3 (0.0-12.0) % Eosinophils % 0.0 (0.00-5.0) % Basophils % 0.1 (0.0-0.4) % Absolute Granulocytes 20.79 H (1.4-6.9) x10^3/uL Basophils # 0.03 (0-0.4) x10^3/uL Sodium 134 L (137-145) mmol/L Potassium 4.4 (3.5-5.1) mmol/L Chloride 103 (98-107) mmol/L Carbon Dioxide 27 (22-30) mmol/L Anion Gap 8.9 (5-15) MEQ/L BUN 12 (7-17) mg/dL Creatinine 0.50 L (0.52-1.04) mg/dL Estimated GFR > 60.0 ML/MIN Glucose 191 H (74-106) mg/dL Calcium 8.4 (8.4-10.2) mg/dL Total Bilirubin 0.30 (0.2-1.3) mg/dL AST 21 (14-36) U/L ALT 24 (0-35) U/L Alkaline Phosphatase 106 (38-126) U/L Serum Total Protein 6.4 (6.3-8.2) g/dL Albumin 3.5 (3.5-5.0) g/dL Slides for Path Review YES Micro Results-Entire Visit: Microbiology 09/12/22 14:06 Blood Culture - Preliminary Blood NO GROWTH TO DATE 09/12/22 14:00 Blood Culture - Preliminary Blood NO GROWTH TO DATE - Radiology Exams Ordered Rad Exams-Entire Visit: Radiology Procedures Category Date Time Status CHEST 1 VIEW (PORTABLE) Stat Exams 09/12/22 13:37 Completed CHEST WITH CONTRAST [CT] Stat Exams 09/12/22 15:00 Completed - Procedures and Test Procedures and Tests throughout Hospitalization: Therapy Orders & Screens 09/12/22 13:07 Respiratory Therapy Assessment DAILY Comment: 09/12/22 14:06 Respiratory Therapy Assessment DAILY Comment: Discharge Exam General Appearance: no apparent distress, obese Neurologic Exam: alert, oriented x 3 Respiratory Exam: normal breath sounds Cardiovascular Exam: regular rate/rhythm, normal heart sounds Gastrointestinal/Abdomen Exam: soft, No tenderness, No mass Extremity Exam: normal inspection, normal range of motion Skin Exam: normal color, warm, dry Final Diagnosis/Problem List - Final Discharge Diagnosis/Problem (1) Acute bronchitis with bronchospasm Current Visit: Yes Status: Acute Assessment & Plan: has levaquin at home, will resume. nebulizer solution and prednisone taper supplied, patient states she has a nebulizer machine at home Code(s): J20.9 - ACUTE BRONCHITIS, UNSPECIFIED - Discharge Disposition: Home, Self-Care Condition: Stable Prescriptions: New Prednisone 20 mg [Deltasone 20 mg] 20 mg PO UD #18 tablet Levofloxacin [Levofloxacin 500 MG Tablet] 500 mg PO DAILY #7 tablet Albuterol 2.5 mg/3 ml Neb [Proventil 2.5 mg/3 ml Neb] 2.5 mg IH QID PRN #100 unit Continue Sertraline HCl [Zoloft] 100 mg PO DAILY Omeprazole 40 mg PO DAILY Discontinued Albuterol Sulfate 2.5 mg IH Q4H Additional Instructions: take the levaquin that was filled on Monday with nebulizer every 6 hrs during the day and prednisone taper as directed. return for any respiratory distress/worsening of your condition. Follow up with: SUMAYA AVILES MD [ACTIVE STAFF] - Call for Appointment (ok to schedule first available, does not need to be seen within a week)
== END 2022-09-14 10:59 | disposition home or self-care (01) ==
LOC: ED 13:00 → MED SURG 17:45
PROVIDERS: ADMIT Family Medicine; ATTEND Family Medicine
DX: J20.9 Acute bronchitis, unspecified (principal); E66.9 Obesity, unspecified; K21.9 Gastro-esophageal reflux disease without esophagitis; J98.8 Other specified respiratory disorders; R00.2 Palpitations; Z79.899 Other long term (current) drug therapy; Z20.828 Contact with and (suspected) exposure to other viral communicable diseases
CPT/HCPCS: 0241U; 36000; 36415; 71045; 71260; 80053; 83735; 83880; 84484; 85025; 85027; 85379; 87040; 93005; 93041; 94640; 94760; 94762; 96365; 99284; 93268; J0456; J0696; J1650; J2405; J2930; J3475; J7609; A9270-GY; G0378

== ENCOUNTER 2023-09-25 09:54 | Emergency (ER) | payer BC ==
[2023-09-25 10:26] VITALS: TEMP 98.1
--- NOTE | 2023-09-25 11:08 | ERPHSYRPT ---
- History of Present Illness Time Seen by Provider: 09/25/23 10:56 Historian: patient Exam Limitations: no limitations Patient Subjective Stated Complaint: N&V on Monday and diarrhea started after but vomiting stopped Triage Nursing Assessment: Pt was brought to the ER by her , vitals wnl, rates pain as 6/10, has eaten some, has abdominal cramping, N&V, diarrhea, denies any other symptoms, pulses normal, skin n/w/d, no difficulty with breathing, vomiting stopped on Monday but severe diarrhea and cramping Physician History: Pt states for the past 5 days she has had generalized abdominal pressure up to 7/10 in severity, nausea and diarrhea without blood. Pt also states 5 days ago she had a headache and vomiting; denies chest pain, shortness of air, fever, cough. Allergies/Adverse Reactions: No Known Drug Allergies Allergy (Verified 09/25/23 10:26) Home Medications: Omeprazole 40 mg PO DAILY 09/12/22 [History] Sertraline HCl [Zoloft] 100 mg PO DAILY 09/12/22 [History] Hx Influenza Vaccination/Date Given: No Hx Pneumococcal Vaccination/Date Given: No Travel Risk - International Travel Have you traveled outside of the country in past 3 weeks: No - Coronavirus Screening Are you exhibiting any of the following symptoms?: Yes Symptoms: Vomiting/Diarrhea Close contact with a COVID-19 positive Pt in past 14-21 Days: No - Vaccine Status Have you recieved a Covid-19 vaccination: No - Review of Systems Constitutional: No Fever Ears, Nose, & Throat: No Ear Pain, No Throat Pain Respiratory: No Dyspnea Cardiac: No Chest Pain Abdominal/Gastrointestinal: Abdominal Pain (pressure), Nausea, Vomiting, Diarrhea Genitourinary Symptoms: No Dysuria Neurological: Headache - Past Medical History Pertinent Past Medical History: Yes Respiratory History: Bronchitis GI Medical History: GERD Psycho-Social History: Anxiety Other Medical History: a fib stress induced where pt had to be cardioverted. FU with scarfer and states no arrythmias noted stated "stress induced" - Past Surgical History Past Surgical History: Yes Gastrointestinal: Cholecystectomy Other Surgical History: lithotripsy - Social History Smoking Status: Never smoker Exposure to second hand smoke: Yes Drug Use: none Patient Lives Alone: No - Female History Hx Last Menstrual Period: 09/10/2023 Hx Now: No - Nursing Vital Signs Nursing Vital Signs: Initial Vital Signs Temperature 98.1 F 09/25/23 10:13 Pulse Rate 88 09/25/23 10:13 Blood Pressure 136/98 09/25/23 10:13 O2 Sat by Pulse Oximetry 97 09/25/23 10:13 Pain Scale Pain Intensity 0 - Physical Exam General Appearance: alert Eye Exam: PERRL/EOMI Ears, Nose, Throat Exam: TMs normal, pharynx normal Neck Exam: normal inspection Respiratory Exam: normal breath sounds Cardiovascular Exam: normal heart sounds Gastrointestinal/Abdomen Exam: soft, other (B.S. moderately hyperactive and normotonic) Back Exam: normal inspection Neurologic Exam: alert, cooperative Skin Exam: warm, dry SpO2 Interpretation: normal SpO2: 97 O2 Delivery: Room Air - Course Nursing assessment & vital signs reviewed: Yes - CT Exams Abdomen/Pelvis CT Interpretation: Tele-radiologist Report (Enlarged liver. Right renal two very tiny non-obstructive stones. Left renal upper pole small cyst. Small umbilical hernia containing fat.) Ordered Tests: Active Orders 24 hr Category Date Time Status IV Insertion STAT Care 09/25/23 11:06 Active ABDOMEN AND PELVIS W/0 CONTRAS [CT] Stat Exams 09/25/23 11:06 Completed AMYLASE Stat Lab 09/25/23 11:00 Completed CBC W DIFF Stat Lab 09/25/23 11:00 Completed CMP Stat Lab 09/25/23 11:00 Completed CULTURE,URINE Stat Lab 09/25/23 12:10 Received HCG QUALITATIVE, SERUM Stat Lab 09/25/23 11:00 Completed LIPASE Stat Lab 09/25/23 11:00 Completed UA W/RFX UR CULTURE Stat Lab 09/25/23 12:10 Completed Medication Summary Generic Name Dose Route Start Last Admin Trade Name Freq PRN Reason Stop Dose Admin Ceftriaxone Sodium/Dextrose 1 g in 50 mls @ 100 mls/hr 09/25/23 14:14 Rocephin 1 Gm-D5w 50 Ml Bag IV 09/25/23 14:43 STAT STA Discontinued Medications Generic Name Dose Route Start Last Admin Trade Name Freq PRN Reason Stop Dose Admin Sodium Chloride 1,000 mls @ 999 mls/hr 09/25/23 11:06 09/25/23 12:44 Sodium Chloride 0.9% 1000 Ml IV 09/25/23 12:06 Infused .Q1H1M STA Infusion Sodium Chloride Confirm 09/25/23 11:15 Sodium Chloride 0.9% 1000 Ml Administered 09/25/23 11:16 Dose 1,000 mls @ ud .ROUTE .STK-MED ONE Morphine Sulfate 2 mg 09/25/23 11:06 09/25/23 11:18 Morphine Sulfate 2 Mg/Ml Inj IV 09/25/23 11:07 2 mg STAT ONE Administration Morphine Sulfate Confirm 09/25/23 11:15 Morphine Sulfate 2 Mg/Ml Inj Administered 09/25/23 11:16 Dose 2 mg .ROUTE .STK-MED ONE Ondansetron HCl 4 mg 09/25/23 11:06 09/25/23 11:18 Ondansetron Hcl 4 Mg/2 Ml Vial IV 09/25/23 11:07 4 mg STAT ONE Administration Ondansetron HCl Confirm 09/25/23 11:15 Ondansetron Hcl 4 Mg/2 Ml Vial Administered 09/25/23 11:16 Dose 4 mg .ROUTE .STK-MED ONE Potassium Chloride 20 meq 09/25/23 14:15 Potassium Chloride Tab 10 Meq Tab PO 09/25/23 14:16 STAT ONE Lab/Rad Data: Laboratory Result Diagrams 09/25/23 11:00 09/25/23 11:00 Laboratory Results 09/25/23 09/25/23 09/25/23 Range/Units 12:10 11:00 11:00 WBC (4.0-10.5) x10^3/uL RBC (4.1-5.4) x10^6/uL Hgb (12.0-16.0) g/dL Hct (35-47) % MCV (78-100) fL MCH (26-32) pg MCHC (32-36) g/dL RDW (11.5-14.0) % Plt Count (150-450) x10^3/uL MPV (7.5-11.0) fL Gran % (36.0-66.0) % Immature Gran % (Auto) (0.00-0.4) % Nucleat RBC Rel Count (0.00-0.1) % Eos # (Auto) (0-0.5) x10^3/uL Immature Gran # (Auto) (0.00-0.03) x10^3u/L Absolute Lymphs (auto) (1.0-4.6) x10^3/uL Absolute Monos (auto) (0.0-1.3) x10^3/uL Absolute Nucleated RBC (0.00-0.01) x10^3u/L Lymphocytes % (24.0-44.0) % Monocytes % (0.0-12.0) % Eosinophils % (0.00-5.0) % Basophils % (0.0-0.4) % Absolute Granulocytes (1.4-6.9) x10^3/uL Basophils # (0-0.4) x10^3/uL Sodium 138 (137-145) mmol/L Potassium 3.3 L (3.5-5.1) mmol/L Chloride 103 (98-107) mmol/L Carbon Dioxide 25 (22-30) mmol/L Anion Gap 14.0 (5-15) MEQ/L BUN 10 (7-17) mg/dL Creatinine 0.54 (0.52-1.04) mg/dL Estimated GFR 112.8 ML/MIN Glucose 121 H (74-106) mg/dL Calcium 8.6 (8.4-10.2) mg/dL Total Bilirubin 0.60 (0.2-1.3) mg/dL AST 49 H (14-36) U/L ALT 43 H (0-35) U/L Alkaline Phosphatase 94 (38-126) U/L Serum Total Protein 7.4 (6.3-8.2) g/dL Albumin 4.2 (3.5-5.0) g/dL Amylase 54 (30-110) U/L Lipase 34 (23-300) U/L Serum HCG, Qual NEGATIVE (NEGATIVE) Urine Color Dark Yellow A (Yellow) Urine Appearance Cloudy A (Clear) Urine pH 6.0 (4.6-8.0) Ur Specific [place] 1.020 (1.005-1.030) Urine Protein Trace A (Negative) Urine Glucose (UA) Negative (Negative) mg/dL Urine Ketones Trace A (Negative) Urine Blood Negative (Negative) Urine Nitrite Negative (Negative) Urine Bilirubin Negative (Negative) Urine Urobilinogen 1.0 A (0.2) mg/dL Ur Leukocyte Esterase Trace A (Negative) U Hyaline Cast (Auto) NONE SEEN (0-2) /LPF Urine Microscopic RBC 0-2 (0-5) /HPF Urine Microscopic WBC 6-10 A (0-5) /HPF Ur Epithelial Cells Moderate A (None Seen) /HPF Urine Bacteria Rare A (None Seen) /HPF Urine Culture Reflexed YES (NO) 09/25/23 Range/Units 11:00 WBC 10.7 H (4.0-10.5) x10^3/uL RBC 5.45 H (4.1-5.4) x10^6/uL Hgb 13.0 (12.0-16.0) g/dL Hct 42.5 (35-47) % MCV 78.0 (78-100) fL MCH 23.9 L (26-32) pg MCHC 30.6 L (32-36) g/dL RDW 15.2 H (11.5-14.0) % Plt Count 228 (150-450) x10^3/uL MPV 10.7 (7.5-11.0) fL Gran % 83.4 H (36.0-66.0) % Immature Gran % (Auto) 0.3 (0.00-0.4) % Nucleat RBC Rel Count 0.0 (0.00-0.1) % Eos # (Auto) 0.10 (0-0.5) x10^3/uL Immature Gran # (Auto) 0.03 (0.00-0.03) x10^3u/L Absolute Lymphs (auto) 0.86 L (1.0-4.6) x10^3/uL Absolute Monos (auto) 0.77 (0.0-1.3) x10^3/uL Absolute Nucleated RBC 0.00 (0.00-0.01) x10^3u/L Lymphocytes % 8.0 L (24.0-44.0) % Monocytes % 7.2 (0.0-12.0) % Eosinophils % 0.9 (0.00-5.0) % Basophils % 0.2 (0.0-0.4) % Absolute Granulocytes 8.92 H (1.4-6.9) x10^3/uL Basophils # 0.02 (0-0.4) x10^3/uL Sodium (137-145) mmol/L Potassium (3.5-5.1) mmol/L Chloride (98-107) mmol/L Carbon Dioxide (22-30) mmol/L Anion Gap (5-15) MEQ/L BUN (7-17) mg/dL Creatinine (0.52-1.04) mg/dL Estimated GFR ML/MIN Glucose (74-106) mg/dL Calcium (8.4-10.2) mg/dL Total Bilirubin (0.2-1.3) mg/dL AST (14-36) U/L ALT (0-35) U/L Alkaline Phosphatase (38-126) U/L Serum Total Protein (6.3-8.2) g/dL Albumin (3.5-5.0) g/dL Amylase (30-110) U/L Lipase (23-300) U/L Serum HCG, Qual (NEGATIVE) Urine Color (Yellow) Urine Appearance (Clear) Urine pH (4.6-8.0) Ur Specific [place] (1.005-1.030) Urine Protein (Negative) Urine Glucose (UA) (Negative) mg/dL Urine Ketones (Negative) Urine Blood (Negative) Urine Nitrite (Negative) Urine Bilirubin (Negative) Urine Urobilinogen (0.2) mg/dL Ur Leukocyte Esterase (Negative) U Hyaline Cast (Auto) (0-2) /LPF Urine Microscopic RBC (0-5) /HPF Urine Microscopic WBC (0-5) /HPF Ur Epithelial Cells (None Seen) /HPF Urine Bacteria (None Seen) /HPF Urine Culture Reflexed (NO) - Progress Progress: improved Counseled pt/family regarding: lab results, diagnosis, need for follow-up, rad results Medical Desision Making - Diagnostic Testing Diagnostic test were ordered, analyzed, and reviewed by me: Yes Radiological Interpretation: Teleradiologist Report - Departure Departure Disposition: Home Clinical Impression: UTI (urinary tract infection), Diarrhea, Abdominal pressure, Vomiting Condition: Stable Critical Care Time: No Referrals: SUMAYA AVILES MD [Primary Care Provider] - Follow up/PCP as directed Instructions: Diarrhea and Traveler's Diarrhea, Adult (DC), Nausea and Vomiting, Adult (DC), Urinary Tract Infection, Adult (DC) Additional Instructions: Follow up with private doctor tomorrow. Clear liquids only for the next 12 hours. Prescriptions: Ondansetron ODT 4 MG [Zofran Odt 4 mg] 4 mg PO Q6H PRN PRN #10 tablet PRN Reason: Nausea Nitrofurantoin Macro 100 mg [Macrobid 100MG Capsule] 100 mg PO BID #14 cap
[2023-09-25] MEDS ORDERED: Zofran 4 MG/2 ML VIAL ONE (11:15)
[2023-09-25] MEDS ORDERED: Sodium Chloride 0.9% 1000 ML 1,000 ML ONE (11:15)
[2023-09-25] MEDS ORDERED: MORPHINE SULFATE 2 MG INJ ONE (11:15)
[2023-09-25] MEDS: MORPHINE SULFATE 2 MG INJ IV ONE (11:18)
[2023-09-25] MEDS: Sodium Chloride 0.9% 1000 ML 1,000 ML IV STA (11:18)
[2023-09-25] MEDS: Zofran 4 MG/2 ML VIAL IV ONE (11:18)
[2023-09-25 11:34] LABS: Absolute Neutrophil Ct (ANC) 8.92 x10^3/uL (1.4-6.9); BASOPHIL % 0.2 % (0.0-0.4); Basophil (Absolute #) 0.02 x10^3/uL (0-0.4); Eosinophil % 0.9 % (0.00-5.0); Hematocrit 42.5 % (35-47); IMMATURE GRAN # 0.03 x10^3u/L (0.00-0.03); IMMATURE GRAN % 0.3 % (0.00-0.4); Lymphocyte (Absolute #) 0.86 x10^3/uL (1.0-4.6); Mean Corpuscular Hemoglobin 23.9 pg (26-32); Mean Corpuscular Hgb Concent. 30.6 g/dL (32-36); Mean Platelet Volume 10.7 fL (7.5-11.0); Monocyte (Absolute #) 0.77 x10^3/uL (0.0-1.3); Monocytes % 7.2 % (0.0-12.0); Neutrophil % 83.4 % (36.0-66.0); Platelet Count 228 x10^3/uL (150-450); Red Blood Count 5.45 x10^6/uL (4.1-5.4); Red Cell Distribution Width 15.2 % (11.5-14.0); White Blood Count 10.7 x10^3/uL (4.0-10.5)
[2023-09-25 11:51] LABS: ALBUMIN 4.2 g/dL (3.5-5.0); BILIRUBIN,TOTAL 0.6 mg/dL (0.2-1.3); Calcium 8.6 mg/dL (8.4-10.2); Creatinine 1 0.54 mg/dL (0.52-1.04); EST GLOMERULAR FILTRATION RATE 112.8 ML/MIN; Potassium 3.3 mmol/L (3.5-5.1); Total Protein 7.4 g/dL (6.3-8.2)
[2023-09-25 11:54] LABS: HCG SERUM TEST NEGATIVE (NEGATIVE)
[2023-09-25 12:11] VITALS: PULSE 93; RESP 18
[2023-09-25 12:37] LABS: Appearance Cloudy (Clear); Bacteria Rare /HPF (None Seen); Bilirubin Negative (Negative); Blood Negative (Negative); Epithelial Cells Moderate /HPF (None Seen); Glucose, Urine Negative (Negative); Hyaline Casts NONE SEEN /LPF (0-2); Ketones Trace (Negative); Leukocyte Esterase Trace (Negative); Nitrite Negative (Negative); Protein,Urine Dip Trace (Negative); RBC 0-2 /HPF (0-5)
[2023-09-25 12:50] LABS: ADD URINE CULTURE? YES (NO)
--- NOTE | 2023-09-25 13:48 | XRAY ---
CLINICAL HISTORY:vomiting COMPARISON:None. TECHNIQUE:CT of the abdomen and pelvis was performed in axial plane with sagittal and coronal reconstructed images without intravenous contrast administration. FINDINGS: The liver is enlarged in size measuring 18 cm, it shows normal morphology and appears unremarkable with no intrahepatic or extrahepatic bile duct dilation. Surgical clips of cholecystectomy. Unremarkable appearing pancreas. No pancreatic mass or ductal dilatation is seen. Unremarkable appearing spleen. The adrenal glands are normal. Right renal two small non-obstructing stones each measuring 2 mm. Left renal upper pole small cyst measuring 2.5 cm. Otherwise, the kidneys appear unremarkable with no hydronephrosis. The ureters are normal with no stones. The bladder is unremarkable with no stones. Unremarkable uterus. Unremarkable abdominal aorta without specific evidence of aneurysm or dissection. The stomach appears unremarkable. Unremarkable appearing duodenum. The appendix is visualized and appears normal. No evidence of fat stranding. The sigmoid and descending colon show diverticulosis with no evidence of diverticulitis. The colon is non-distended. No free air and no ascites. No free intraperitoneal air is seen. Right ovary 3 cm hypodense lesion possibly cyst noted. Ultrasound correlation is recommended. Small umbilical hernia containing fat. Bones appear grossly unremarkable apart from mild spondylotic changes. Scanned lung bases show mild left-sided pleural effusion and basal atelectasis. IMPRESSION: 1. Enlarged liver. 2. Right renal two very tiny non-obstructing stones. 3. Left renal upper pole small cyst. 4. Small umbilical hernia containing fat. 5. Right ovary 3 cm cyst. 6. Scanned lung bases show mild left-sided pleural effusion and basal atelectasis. Electronically Signed by: Delano Esparza MD. (09/25/2023 13:45:01 EST)
[2023-09-25] MEDS ORDERED: ROCEPHIN 1 Gm-D5w 50 ml Bag** 1 G/50 ML IVPB IV ONE (14:23)
[2023-09-25] MEDS ORDERED: Klor Con PO ONE (14:23)
[2023-09-25] MEDS: Klor Con PO ONE (14:31)
[2023-09-25] MEDS: ROCEPHIN 1 Gm-D5w 50 ml Bag** 1 G/50 ML IVPB IV STA (14:32)
[2023-09-28 01:12] VITALS: BP 110/75; O2SAT 93
== END 2023-09-25 14:43 | disposition home or self-care (01) ==
LOC: ED 09:54
DX: N39.0 Urinary tract infection, site not specified (principal); R19.7 Diarrhea, unspecified; R10.84 Generalized abdominal pain; R11.2 Nausea with vomiting, unspecified; R51.9 Headache, unspecified; Z79.899 Other long term (current) drug therapy; Z28.310 Unvaccinated for COVID-19
CPT/HCPCS: 36000; 36415; 74176; 80053; 81001; 82150; 83690; 84703; 85025; 87086; 96360; 96365; 96374; 96375; 99284; J0696; J2270; J2405; A9270-GY

== ENCOUNTER 2024-01-25 04:06 | Observation (INO) | payer BC ==
[2024-01-25] MEDS ORDERED: DUONEB 0.5-3 MG/3 ml Neb IH ONE (04:28)
[2024-01-25] MEDS: DUONEB 0.5-3 MG/3 ml Neb IH ONE (04:33)
--- NOTE | 2024-01-25 04:40 | ERPHSYRPT ---
- History of Present Illness Time Seen by Provider: 01/25/24 04:30 Source: patient Exam Limitations: no limitations Patient Subjective Stated Complaint: pt states that since 01/21/24 she has had increased shortness of breath where she feels like she isn't getting enough air. this is accompanied by a frequent cough in which she is able to expectorate small amounts of clear thick mucus. Triage Nursing Assessment: pt ambulated into room 8 independently with a slow steady gait. pt is alert and oriented times three, able to speak in 4-5 word phrases, able to move all extremities, and resp even and unlabored with use of accessory muscles. reports feeling like she "isn't getting enough air". bilat anterior/ posterior lung sounds with inspiratory/ expiratory wheezes throughout. heart sounds are present and regular upon auscultation. bilat radial and pedal pulses palpable. no JVD or edema noted. dry cough noted without coughing anything up at this time. pt denies pain, lightheadedness, dizziness, cp, n/v, diarrhea, change to appetite, difficulty with urinary or bowel elimination. Physician History: 49-year-old female presents emergency department for evaluation of shortness of breath. Symptoms started approximately 4 to 5 days ago. Shortness of breath has been progressive. Upon arrival to our ED patient was in mild respiratory distress. Patient able to speak 4-5 word sentences. Audible wheezing. No asso ciated chest pain. Symptoms worse with exertion symptoms improved with rest. Patient admits that she had been hospitalized for similar symptoms in the past. No associated nausea vomiting or diaphoresis. No rash no fever. Patient voices no other complaints or concerns at this time. Portions of this note were created with voice recognition technology. There may be grammatical, spelling, punctuation or sound alike errors Timing/Duration: day(s) (For 5 days) Activities at Onset: activity Severity of Dyspnea-Max: moderate Severity of Dyspnea-Current: moderate Possible Cause: occasional episodes Modifying Factors: Improves With: activity Associated Symptoms: No chest pain/discomfort, No edema, No ankle swelling Allergies/Adverse Reactions: No Known Drug Allergies Allergy (Verified 01/25/24 04:16) Home Medications: Omeprazole 40 mg PO DAILY 09/12/22 [History] Sertraline HCl [Zoloft] 100 mg PO DAILY 09/12/22 [History] Albuterol 2.5 mg/3 ml Neb [Proventil 2.5 mg/3 ml Neb] 2.5 mg IH TID PRN PRN 01/25/24 [History] Fexofenadine HCl [Triny Allergy] 180 mg PO DAILY 01/25/24 [History] Hx Tetanus, Diphtheria Vaccination/Date Given: (unsure) Hx Influenza Vaccination/Date Given: No Hx Pneumococcal Vaccination/Date Given: No Immunizations Up to Date: No Travel Risk - International Travel Have you traveled outside of the country in past 3 weeks: No - Emerging Infectious Disease Are you exhibiting symptoms associated with any current EIDs: No - Review of Systems Constitutional: No Symptoms, No Fever, No Chills Eyes: No Symptoms Ears, Nose, & Throat: No Symptoms Respiratory: No Symptoms, No Cough, No Dyspnea Cardiac: No Symptoms, No Chest Pain, No Edema, No Syncope Abdominal/Gastrointestinal: No Symptoms, No Abdominal Pain, No Nausea, No Vomiting, No Diarrhea Genitourinary Symptoms: No Symptoms, No Dysuria Musculoskeletal: No Symptoms, No Back Pain, No Neck Pain Skin: No Symptoms, No Rash Neurological: No Symptoms, No Dizziness, No Focal Weakness, No Sensory Changes Psychological: No Symptoms Endocrine: No Symptoms Hematologic/Lymphatic: No Symptoms Immunological/Allergic: No Symptoms All Other Systems: Reviewed and Negative - Past Medical History Pertinent Past Medical History: Yes Neurological History: No Pertinent History ENT History: No Pertinent History Cardiac History: No Pertinent History Respiratory History: Bronchitis Endocrine Medical History: No Pertinent History Musculoskeletal History: No Pertinent History GI Medical History: GERD, Gallbladder Disease History: Other Psycho-Social History: Anxiety Female Reproductive Disorders: No Pertinent History Other Medical History: a fib stress induced where pt had to be cardioverted. FU with edi specialist and states no arrythmias noted stated "stress induced". kidney stones - Past Surgical History Past Surgical History: Yes Neuro Surgical History: No Pertinent History Cardiac: No Pertinent History Respiratory: No Pertinent History Gastrointestinal: Cholecystectomy Genitourinary: No Pertinent History Musculoskeletal: Other Female Surgical History: No Pertinent History Other Surgical History: lithotripsy. facial repair after dog bite as a child - Female History Hx Last Menstrual Period: 01/15/24 Hx Now: No - Social History Smoking Status: Never smoker Exposure to second hand smoke: Yes Drug Use: none Patient Lives Alone: No - Nursing Vital Signs Nursing Vital Signs: Initial Vital Signs Temperature 97.1 F 01/25/24 04:20 Pulse Rate 75 01/25/24 04:20 Respiratory Rate 22 01/25/24 04:20 Blood Pressure 133/97 01/25/24 04:20 O2 Sat by Pulse Oximetry 97 01/25/24 04:20 Pain Scale Pain Intensity 0 - Physical Exam General Appearance: no apparent distress, alert Eye Exam: PERRL/EOMI Ears, Nose, Throat Exam: hearing grossly normal, normal ENT inspection Neck Exam: normal inspection, supple Respiratory Exam: diminished breath sounds, rhonchi (No), wheezing Cardiovascular/Chest Exam: normal heart sounds, regular rate/rhythm Abdominal/Gastrointestinal Exam: soft, No tenderness, No distention, No mass Extremity Exam: non-tender, normal range of motion, normal inspection, no calf tenderness, no pedal edema Neurologic Exam: alert, oriented x 3, cooperative, motor polarizer II-XII nml as tested, sensation nml, No motor deficits Skin Exam: normal color, warm, No dry Lymphatic Exam: No adenopathy SpO2 Interpretation: normal SpO2: 97 O2 Delivery: Room Air - Course Nursing assessment & vital signs reviewed: Yes EKG Interpreted by Me: RATE (69), Sinus Rhythm, NORMAL AXIS, NORMAL INTERVALS Ordered Tests: Active Orders 24 hr Category Date Time Status Organisation And Methods Analyst STAT Care 01/25/24 04:35 Active EKG-ER Only STAT Care 01/25/24 04:34 Active IV Insertion STAT Care 01/25/24 04:34 Active Pulse Oximetry (ED) STAT Care 01/25/24 04:34 Active CHEST WITH CONTRAST [CT] Stat Exams 01/25/24 05:30 Taken BLOOD CULTURE Stat Lab 01/25/24 06:57 Received CBC W DIFF Stat Lab 01/25/24 04:43 Completed CMP Stat Lab 01/25/24 04:43 Completed D-DIMER QUANTITATIVE Stat Lab 01/25/24 04:43 Completed HCG QUALITATIVE, SERUM Stat Lab 01/25/24 04:43 Completed NT PRO BNPII Stat Lab 01/25/24 04:43 Completed TROPONIN Q4H Lab 01/25/24 04:43 Completed TROPONIN Q4H Lab 01/25/24 07:04 Received TROPONIN Q4H Lab 01/25/24 12:45 Ordered Respiratory Therapy Assessment DAILY RT 01/25/24 04:31 Active Transfer Order Routine Transfer 01/25/24 Ordered Medication Summary Generic Name Dose Route Start Last Admin Trade Name Kate PRN Reason Stop Dose Admin Magnesium Sulfate/Dextrose 100 mls @ 100 mls/hr 01/25/24 04:45 01/25/24 05:32 Magnesium 1 Gm / 100 Ml D5w IV 01/25/24 06:44 100 mls/hr Q1H REKHA Administration Discontinued Medications Generic Name Dose Route Start Last Admin Trade Name Kate PRN Reason Stop Dose Admin Albuterol/Ipratropium 3 ml 01/25/24 04:31 01/25/24 04:33 Ipratropium/Albuterol Sulfate 3 Ml Ampul.Neb IH 01/25/24 04:32 3 ml STAT ONE Administration Albuterol/Ipratropium Confirm 01/25/24 04:28 Ipratropium/Albuterol Sulfate 3 Ml Ampul.Neb Administered 01/25/24 04:29 Dose 3 ml IH .STK-MED ONE Methylprednisolone Sodium 0 mg 01/25/24 04:34 01/25/24 04:53 Succinate 125 mg/ Sterile IV 01/25/24 04:35 125 mg Water 2 ml STAT ONE Administration Methylprednisolone Sodium Succinate Confirm 01/25/24 04:41 Methylprednis Sod Succ 125 Mg/2 Ml Vial Administered 01/25/24 04:42 Dose 125 mg .ROUTE .STK-MED ONE Sterile Water Confirm 01/25/24 04:41 Water For Injection,Sterile 10 Ml Vial Administered 01/25/24 04:42 Dose 10 ml IJ .STK-MED ONE Lab/Rad Data: Laboratory Result Diagrams 01/25/24 04:43 01/25/24 04:43 Laboratory Results 01/25/24 01/25/24 01/25/24 Range/Units 04:50 04:43 04:43 WBC (4.0-10.5) x10^3/uL RBC (4.1-5.4) x10^6/uL Hgb (12.0-16.0) g/dL Hct (35-47) % MCV (78-100) fL MCH (26-32) pg MCHC (32-36) g/dL RDW (11.5-14.0) % Plt Count (150-450) x10^3/uL MPV (7.5-11.0) fL Gran % (36.0-66.0) % Immature Gran % (Auto) (0.00-0.4) % Nucleat RBC Rel Count (0.00-0.1) % Eos # (Auto) (0-0.5) x10^3/uL Immature Gran # (Auto) (0.00-0.03) x10^3u/L Absolute Lymphs (auto) (1.0-4.6) x10^3/uL Absolute Monos (auto) (0.0-1.3) x10^3/uL Absolute Nucleated RBC (0.00-0.01) x10^3u/L Lymphocytes % (24.0-44.0) % Monocytes % (0.0-12.0) % Eosinophils % (0.00-5.0) % Basophils % (0.0-0.4) % Absolute Granulocytes (1.4-6.9) x10^3/uL Basophils # (0-0.4) x10^3/uL D-Dimer (0.0-0.50) mg/L Sodium (135-145) mmol/L Potassium (3.5-5.1) mmol/L Chloride (98-107) mmol/L Carbon Dioxide (22-30) mmol/L Anion Gap (5-15) MEQ/L BUN (7-17) mg/dL Creatinine (0.52-1.04) mg/dL Estimated GFR ML/MIN Glucose (74-106) mg/dL Calcium (8.4-10.2) mg/dL Total Bilirubin (0.2-1.3) mg/dL AST (14-36) U/L ALT (0-35) U/L Alkaline Phosphatase (38-126) U/L Troponin I < 0.012 (0.000-0.033) ng/mL NT-Pro-B Natriuret Pep (<300) pg/mL Serum Total Protein (6.3-8.2) g/dL Albumin (3.5-5.0) g/dL Serum HCG, Qual NEGATIVE (NEGATIVE) Influenza Type A Ag NEGATIVE (NEGATIVE) Influenza Type B Ag NEGATIVE (NEGATIVE) RSV (PCR) NEGATIVE (NEGATIVE) SARS-CoV-2 (PCR) NEGATIVE (NEGATIVE) 0501/25/24 01/25/24 Range/Units 04:43 04:43 04:43 WBC 8.3 (4.0-10.5) x10^3/uL RBC 5.00 (4.1-5.4) x10^6/uL Hgb 12.1 (12.0-16.0) g/dL Hct 38.9 (35-47) % MCV 77.8 L (78-100) fL MCH 24.2 L (26-32) pg MCHC 31.1 L (32-36) g/dL RDW 14.6 H (11.5-14.0) % Plt Count 225 (150-450) x10^3/uL MPV 10.8 (7.5-11.0) fL Gran % 65.4 (36.0-66.0) % Immature Gran % (Auto) 0.4 (0.00-0.4) % Nucleat RBC Rel Count 0.0 (0.00-0.1) % Eos # (Auto) 1.06 H (0-0.5) x10^3/uL Immature Gran # (Auto) 0.03 (0.00-0.03) x10^3u/L Absolute Lymphs (auto) 1.26 (1.0-4.6) x10^3/uL Absolute Monos (auto) 0.48 (0.0-1.3) x10^3/uL Absolute Nucleated RBC 0.00 (0.00-0.01) x10^3u/L Lymphocytes % 15.1 L (24.0-44.0) % Monocytes % 5.8 (0.0-12.0) % Eosinophils % 12.7 H (0.00-5.0) % Basophils % 0.6 (0.0-0.4) % Absolute Granulocytes 5.46 (1.4-6.9) x10^3/uL Basophils # 0.05 (0-0.4) x10^3/uL D-Dimer 2.93 H* (0.0-0.50) mg/L Sodium 140 (135-145) mmol/L Potassium 4.1 (3.5-5.1) mmol/L Chloride 105 (98-107) mmol/L Carbon Dioxide 26 (22-30) mmol/L Anion Gap 13.5 (5-15) MEQ/L BUN 10 (7-17) mg/dL Creatinine 0.55 (0.52-1.04) mg/dL Estimated GFR 111.6 ML/MIN Glucose 143 H (74-106) mg/dL Calcium 8.7 (8.4-10.2) mg/dL Total Bilirubin 0.60 (0.2-1.3) mg/dL AST 28 (14-36) U/L ALT 24 (0-35) U/L Alkaline Phosphatase 119 (38-126) U/L Troponin I (0.000-0.033) ng/mL NT-Pro-B Natriuret Pep 46.0 (<300) pg/mL Serum Total Protein 7.5 (6.3-8.2) g/dL Albumin 4.3 (3.5-5.0) g/dL Serum HCG, Qual (NEGATIVE) Influenza Type A Ag (NEGATIVE) Influenza Type B Ag (NEGATIVE) RSV (PCR) (NEGATIVE) SARS-CoV-2 (PCR) (NEGATIVE) - Progress Progress: improved Air Movement: good Progress Note: 49-year-old female presents emergency department for evaluation of shortness of breath. Upon arrival to our ED patient was noted to be wheezing. Breath sounds are diminished. Coarse at bilateral bases. Patient received DuoNeb, Solu- Medrol magnesium. Laboratory workup reveals elevated D-dimer. CTA chest pending. RSV influenza COVID-negative. Patient reassessed after approximately 3 hours. Patient feels better however there is considerable wheezing and diminished breath sounds. The decision was made to admit for further evaluation and treatment. Case discussed with hospitalist who accepts admission to observation. Plan of care discussed with patient. She agrees to admission to [facility] for further evaluation and treatment. Portions of this note were created with voice recognition technology. There may be grammatical, spelling, punctuation or sound alike errors Complexity problem addressed is high, severe exacerbation with threat to bodily function. No critical care time Complexity of data reviewed and analyzed is extensive. Test ordered test reviewed results analyzed and correlated clinically with history and physical examination. Management discussed with hospitalist who accepts admission to observation. Risk of complication and or risk of morbidity/mortality patient management is high. Patient requires hospitalization for further evaluation and treatment. Vital stable. Time spent to admit patient is approximately 20 minutes. Plan of care established for shared decision making. No social determinants of health present impede follow-up. Portions of this note were created with voice recognition technology. There may be grammatical, spelling, punctuation or sound alike errors 01/25/24 07:[address] Nolasco will review CT scan. If any concerning findings observed we will notify Dr. Gonzales. 01/25/24 07:23 Blood Culture(s) Obtained: Yes Antibiotics given: No Counseled pt/family regarding: lab results, diagnosis, rad results - Departure Departure Disposition: Observation Clinical Impression: Acute bronchitis with bronchospasm Condition: Stable Critical Care Time: No Referrals: SUMAYA AVILES MD [Primary Care Provider] - Follow up/PCP as directed
[2024-01-25] MEDS ORDERED: solu-MEDROL ONE (04:41)
[2024-01-25] MEDS ORDERED: Magnesium 1 Gm / 100 Ml D5W*** 200 ML IV ONE (04:41)
[2024-01-25] MEDS ORDERED: Sterile H2O 10 ml IJ ONE (04:41)
[2024-01-25] MEDS: solu-MEDROL 125 MG, Sterile H2O 10 ml 2 ML IV ONE (04:53)
[2024-01-25] MEDS: Magnesium 1 Gm / 100 Ml D5W*** 100 ML IV SCH (04:54)
[2024-01-25 05:01] LABS: Absolute Neutrophil Ct (ANC) 5.46 x10^3/uL (1.4-6.9); BASOPHIL % 0.6 % (0.0-0.4); Basophil (Absolute #) 0.05 x10^3/uL (0-0.4); Eosinophil % 12.7 % (0.00-5.0); Eosinophil (Absolute #) 1.06 x10^3/uL (0-0.5); Hematocrit 38.9 % (35-47); Hemoglobin 12.1 g/dL (12.0-16.0); IMMATURE GRAN # 0.03 x10^3u/L (0.00-0.03); IMMATURE GRAN % 0.4 % (0.00-0.4); Lymphocyte (Absolute #) 1.26 x10^3/uL (1.0-4.6); Lymphocytes % 15.1 % (24.0-44.0); Mean Cell Volume 77.8 fL (78-100); Mean Corpuscular Hemoglobin 24.2 pg (26-32); Mean Corpuscular Hgb Concent. 31.1 g/dL (32-36); Mean Platelet Volume 10.8 fL (7.5-11.0); Monocyte (Absolute #) 0.48 x10^3/uL (0.0-1.3); Monocytes % 5.8 % (0.0-12.0); Neutrophil % 65.4 % (36.0-66.0); Platelet Count 225 x10^3/uL (150-450); Red Cell Distribution Width 14.6 % (11.5-14.0); White Blood Count 8.3 x10^3/uL (4.0-10.5)
[2024-01-25 05:12] LABS: HCG SERUM TEST NEGATIVE (NEGATIVE)
[2024-01-25 05:24] LABS: ALBUMIN 4.3 g/dL (3.5-5.0); ANION GAP 13.5 MEQ/L (5-15); BILIRUBIN,TOTAL 0.6 mg/dL (0.2-1.3); Calcium 8.7 mg/dL (8.4-10.2); Creatinine 1 0.55 mg/dL (0.52-1.04); EST GLOMERULAR FILTRATION RATE 111.6 ML/MIN; Potassium 4.1 mmol/L (3.5-5.1); Total Protein 7.5 g/dL (6.3-8.2)
[2024-01-25 05:39] LABS: INFLUENZA A NEGATIVE (NEGATIVE); INFLUENZA B NEGATIVE (NEGATIVE); RESPIRATORY SYNCTIAL VIRUS NEGATIVE (NEGATIVE); SARS-CoV-2 Xpert Express NEGATIVE (NEGATIVE)
[2024-01-25] MEDS ORDERED: PROVENTIL 2.5 MG/3 ML NEB IH ONE (07:31)
[2024-01-25] MEDS: PROVENTIL 2.5 MG/3 ML NEB IH ONE (07:32)
--- NOTE | 2024-01-25 07:32 | XRAY ---
CLINICAL HISTORY: sob, wheezing, elev d dimer COMPARISON: None. TECHNIQUE: CT angiographic images of the chest were acquired after the administration of contrast. 80 cc of Isovue 370 was administered. DLP : 1367.33 mGy-cm. One of the following dose reduction techniques was utilized for this exam: Automated exposure control, adjustment of the mA and/or kV according to patient size, and use of iterative reconstruction. FINDINGS: No evidence of filling defects is noted in the main pulmonary trunk and the main branches. The segmental and subsegmental branches are inadequately opacified. The main pulmonary artery measures 2.6 cm in diameter (within normal limits) and there is no evidence of right ventricular strain. Moderate right and minimal left pleural effusions are noted. Possible thin interlobular septal lines are noted peripherally (representing interstitial edema). No evidence of sizeable nodules, masses or consolidation opacities are seen in both lung parenchyma. Right apical and left singular and lower lobar atelectatic bands. Mild enlargement of the cardiac chambers. Normal appearance of the thoracic aorta. Few reactionary mediastinal lymph nodes are seen, no suspiciously enlarged nodes are appreciated. No mediastinal masses or collection. Patent tracheobronchial tree. No lytic or sclerotic lesions in the visualized spine. IMPRESSION: 1. No evidence of pulmonary emboli in the main pulmonary artery trunk or the main branches. The segmental and subsegmental branches branches are inadequately opacified and filling defects can't be excluded. 2. Bilateral pleural effusion (moderate at the right side and minimal at the left side). 3. Possible peripheral interlobular septal thickening (representing interstitial edema). 4. Bilateral atelectatic bands. Electronically Signed by: Delano Esparza MD. (01/25/2024 07:28:47 EDT)
--- NOTE | 2024-01-25 11:39 | PCM.HP ---
History of Present Illness - Chief Complaint Chief Complaint: bronchitis; bronchospasms Date: 01/25/24 History of Present Illness: is a 49 year old female with a pmhx of bronchitis, GERD, anxiety, AFIB (2020 with conversion/stress induced), and kidney stones who presented to ED 01/25/24 with complaints of a 5 day history of progressive shortness of breath, wheezing, and cough. She has been using her home nebulizer up to three times a day with minimal relief. Patient states she was in her usual state of health prior. Patient is on RA. Diminished lung sounds with exp wheezing noted on exam. Denies fever, cp, abdominal pain, CAGE, dizziness, N/V/D. In ED vitals stable. Labs remarkable for elevated DDimer and eosinophil count. Respiratory panel negative. CT chest negative for PE demonstrating bilateral R>L pleural effusions. EKG NS with no ST elevations/deviations. Patient given solumedrol, duoneb, and MG in ED. Patient being admitted with pleural effusion, plan for steroid/nebs/lasix. - Review of Systems Constitutional: No Symptoms Eyes: No Symptoms Ears, Nose, & Throat: No Symptoms Respiratory: Cough, Short Of Breath, Wheezing Cardiac: No Symptoms Abdominal/Gastrointestinal: No Symptoms Genitourinary Symptoms: No Symptoms Musculoskeletal: No Symptoms Skin: No Symptoms Neurological: No Symptoms Psychological: No Symptoms Endocrine: No Symptoms Hematologic/Lymphatic: No Symptoms Immunological/Allergic: No Symptoms Medications & Allergies Home Medications: Home Medication List Omeprazole 40 mg PO HS 09/12/22 [History Confirmed 01/25/24] Sertraline HCl [Zoloft] 100 mg PO HS 09/12/22 [History Confirmed 01/25/24] Albuterol 2.5 mg/3 ml Neb [Proventil 2.5 mg/3 ml Neb] 2.5 mg IH TID PRN PRN 01/25/24 [History Confirmed 01/25/24] Fexofenadine HCl [Triny Allergy] 180 mg PO DAILY 01/25/24 [History Confirmed 01/25/24] Allergies/Adverse Reactions: Allergies Allergy/AdvReac Type Severity Reaction Status Date / Time No Known Drug Allergies Allergy Verified 01/25/24 08:51 - Past Medical History Past Medical History: Yes Neurological History: No Pertinent History ENT History: No Pertinent History Cardiac History: No Pertinent History Respiratory History: Bronchitis Endocrine Medical History: No Pertinent History Musculoskelatal History: No Pertinent History GI Medical History: GERD, Gallbladder Disease History: Other Pyscho-Social History: Anxiety Reproductive Disorders: No Pertinent History Comment: afib: cardioversion in 2019. hx of kidney stones - Female History Hx Last Menstrual Period: 01/15/2024 Are you now?: No - Past Surgical History Past Surgical History: Yes Neuro Surgical History: No Pertinent History Cardiac History: No Pertinent History Respiratory Surgery: No Pertinent History GI Surgical History: Cholecystectomy Genitourinary Surgical Hx: No Pertinent History Musculskeletal Surgical Hx: Other Female Surgical History: No Pertinent History Other Surgical History: lithotripsy. facial sx as child from dog bite - Social History Smoking Status: Never smoker Exposure to second hand smoke: No Alcohol: Occasionally Drug Use: none - Social Determinants of Health Will the patient participate in the screening: Yes Do you worry about a steady place to live?: No Do you have any problems with any of the following?: No known problems In the past 12 months,have you had to go without utilities?: No Have you or anyone in your house had to go without enough: No Transportation Issues: No Has anyone in your support network made you feel unsafe?: No Does the patient want assistance with any of the above?: No - Physical Exam Vital Signs: Vital Signs - 24 hr Temp Pulse Resp BP BP Pulse Ox 01/25/24 08:58 96.6 F 83 17 131/77 95 01/25/24 08:42 95 01/25/24 07:42 100 H 18 97 01/25/24 07:26 97 01/25/24 06:30 74 16 136/90 98 01/25/24 06:26 78 12 150/98 97 01/25/24 06:01 74 20 146/91 95 01/25/24 05:30 71 18 121/83 93 L 01/25/24 05:01 67 17 133/78 95 01/25/24 04:34 97 01/25/24 04:33 75 18 97 01/25/24 04:30 62 15 131/85 97 01/25/24 04:20 97.1 F 75 22 133/97 97 General Appearance: no apparent distress Neurologic Exam: alert, oriented x 3, cooperative Eye Exam: PERRL/EOMI Ears, Nose, Throat Exam: normal ENT inspection Neck Exam: normal inspection Respiratory Exam: diminished breath sounds, wheezing Cardiovascular Exam: regular rate/rhythm, normal heart sounds Gastrointestinal/Abdomen Exam: soft, normal bowel sounds Pelvic Exam: not done Rectal Exam: deferred Back Exam: normal inspection Extremity Exam: normal inspection, swelling (BLE +1) Skin Exam: normal color Results - Labs Lab/Micro Results: Lab Results-Last 24 Hours 01/25/24 01/25/24 01/25/24 Range/Units 04:43 04:43 04:43 WBC 8.3 (4.0-10.5) x10^3/uL RBC 5.00 (4.1-5.4) x10^6/uL Hgb 12.1 (12.0-16.0) g/dL Hct 38.9 (35-47) % MCV 77.8 L (78-100) fL MCH 24.2 L (26-32) pg MCHC 31.1 L (32-36) g/dL RDW 14.6 H (11.5-14.0) % Plt Count 225 (150-450) x10^3/uL MPV 10.8 (7.5-11.0) fL Gran % 65.4 (36.0-66.0) % Immature Gran % (Auto) 0.4 (0.00-0.4) % Nucleat RBC Rel Count 0.0 (0.00-0.1) % Eos # (Auto) 1.06 H (0-0.5) x10^3/uL Immature Gran # (Auto) 0.03 (0.00-0.03) x10^3u/L Absolute Lymphs (auto) 1.26 (1.0-4.6) x10^3/uL Absolute Monos (auto) 0.48 (0.0-1.3) x10^3/uL Absolute Nucleated RBC 0.00 (0.00-0.01) x10^3u/L Lymphocytes % 15.1 L (24.0-44.0) % Monocytes % 5.8 (0.0-12.0) % Eosinophils % 12.7 H (0.00-5.0) % Basophils % 0.6 (0.0-0.4) % Absolute Granulocytes 5.46 (1.4-6.9) x10^3/uL Basophils # 0.05 (0-0.4) x10^3/uL D-Dimer 2.93 H* (0.0-0.50) mg/L Sodium 140 (135-145) mmol/L Potassium 4.1 (3.5-5.1) mmol/L Chloride 105 (98-107) mmol/L Carbon Dioxide 26 (22-30) mmol/L Anion Gap 13.5 (5-15) MEQ/L BUN 10 (7-17) mg/dL Creatinine 0.55 (0.52-1.04) mg/dL Estimated GFR 111.6 ML/MIN Glucose 143 H (74-106) mg/dL Calcium 8.7 (8.4-10.2) mg/dL Total Bilirubin 0.60 (0.2-1.3) mg/dL AST 28 (14-36) U/L ALT 24 (0-35) U/L Alkaline Phosphatase 119 (38-126) U/L Troponin I (0.000-0.033) ng/mL NT-Pro-B Natriuret Pep 46.0 (<300) pg/mL Serum Total Protein 7.5 (6.3-8.2) g/dL Albumin 4.3 (3.5-5.0) g/dL Serum HCG, Qual (NEGATIVE) Influenza Type A Ag (NEGATIVE) Influenza Type B Ag (NEGATIVE) RSV (PCR) (NEGATIVE) SARS-CoV-2 (PCR) (NEGATIVE) 01/25/24 01/25/24 01/25/24 Range/Units 04:43 04:43 04:50 WBC (4.0-10.5) x10^3/uL RBC (4.1-5.4) x10^6/uL Hgb (12.0-16.0) g/dL Hct (35-47) % MCV (78-100) fL MCH (26-32) pg MCHC (32-36) g/dL RDW (11.5-14.0) % Plt Count (150-450) x10^3/uL MPV (7.5-11.0) fL Gran % (36.0-66.0) % Immature Gran % (Auto) (0.00-0.4) % Nucleat RBC Rel Count (0.00-0.1) % Eos # (Auto) (0-0.5) x10^3/uL Immature Gran # (Auto) (0.00-0.03) x10^3u/L Absolute Lymphs (auto) (1.0-4.6) x10^3/uL Absolute Monos (auto) (0.0-1.3) x10^3/uL Absolute Nucleated RBC (0.00-0.01) x10^3u/L Lymphocytes % (24.0-44.0) % Monocytes % (0.0-12.0) % Eosinophils % (0.00-5.0) % Basophils % (0.0-0.4) % Absolute Granulocytes (1.4-6.9) x10^3/uL Basophils # (0-0.4) x10^3/uL D-Dimer (0.0-0.50) mg/L Sodium (135-145) mmol/L Potassium (3.5-5.1) mmol/L Chloride (98-107) mmol/L Carbon Dioxide (22-30) mmol/L Anion Gap (5-15) MEQ/L BUN (7-17) mg/dL Creatinine (0.52-1.04) mg/dL Estimated GFR ML/MIN Glucose (74-106) mg/dL Calcium (8.4-10.2) mg/dL Total Bilirubin (0.2-1.3) mg/dL AST (14-36) U/L ALT (0-35) U/L Alkaline Phosphatase (38-126) U/L Troponin I < 0.012 (0.000-0.033) ng/mL NT-Pro-B Natriuret Pep (<300) pg/mL Serum Total Protein (6.3-8.2) g/dL Albumin (3.5-5.0) g/dL Serum HCG, Qual NEGATIVE (NEGATIVE) Influenza Type A Ag NEGATIVE (NEGATIVE) Influenza Type B Ag NEGATIVE (NEGATIVE) RSV (PCR) NEGATIVE (NEGATIVE) SARS-CoV-2 (PCR) NEGATIVE (NEGATIVE) 01/25/24 Range/Units 07:04 WBC (4.0-10.5) x10^3/uL RBC (4.1-5.4) x10^6/uL Hgb (12.0-16.0) g/dL Hct (35-47) % MCV (78-100) fL MCH (26-32) pg MCHC (32-36) g/dL RDW (11.5-14.0) % Plt Count (150-450) x10^3/uL MPV (7.5-11.0) fL Gran % (36.0-66.0) % Immature Gran % (Auto) (0.00-0.4) % Nucleat RBC Rel Count (0.00-0.1) % Eos # (Auto) (0-0.5) x10^3/uL Immature Gran # (Auto) (0.00-0.03) x10^3u/L Absolute Lymphs (auto) (1.0-4.6) x10^3/uL Absolute Monos (auto) (0.0-1.3) x10^3/uL Absolute Nucleated RBC (0.00-0.01) x10^3u/L Lymphocytes % (24.0-44.0) % Monocytes % (0.0-12.0) % Eosinophils % (0.00-5.0) % Basophils % (0.0-0.4) % Absolute Granulocytes (1.4-6.9) x10^3/uL Basophils # (0-0.4) x10^3/uL D-Dimer (0.0-0.50) mg/L Sodium (135-145) mmol/L Potassium (3.5-5.1) mmol/L Chloride (98-107) mmol/L Carbon Dioxide (22-30) mmol/L Anion Gap (5-15) MEQ/L BUN (7-17) mg/dL Creatinine (0.52-1.04) mg/dL Estimated GFR ML/MIN Glucose (74-106) mg/dL Calcium (8.4-10.2) mg/dL Total Bilirubin (0.2-1.3) mg/dL AST (14-36) U/L ALT (0-35) U/L Alkaline Phosphatase (38-126) U/L Troponin I < 0.012 (0.000-0.033) ng/mL NT-Pro-B Natriuret Pep (<300) pg/mL Serum Total Protein (6.3-8.2) g/dL Albumin (3.5-5.0) g/dL Serum HCG, Qual (NEGATIVE) Influenza Type A Ag (NEGATIVE) Influenza Type B Ag (NEGATIVE) RSV (PCR) (NEGATIVE) SARS-CoV-2 (PCR) (NEGATIVE) - Radiology Impressions Radiology Exams & Impressions: Radiology Procedures Category Date Time Status CHEST WITH CONTRAST [CT] Stat Exams 01/25/24 05:30 Completed Assessment/Plan (1) Bronchitis Current Visit: No Status: Acute Assessment & Plan: -on RA, supplemental oxygen with spo2 goal >92% -RT eval -DuoNebs/bronchodilator -solumedrol -will defer abx for now Code(s): J40 - BRONCHITIS, NOT SPECIFIED ACUTE OR CHRONIC (2) Pleural effusion Current Visit: Yes Status: Acute Assessment & Plan: -CT showing bilateral pleural effusion R>L -Lasix 40mg IV x 1 -BNP WNL, no history of CHF -IS Code(s): J90 - PLEURAL EFFUSION, NOT ELSEWHERE CLASSIFIED (3) Elevated d-dimer Current Visit: Yes Status: Acute Assessment & Plan: -CT negative for PE -most likely secondary to resp distress Code(s): R79.89 - OTHER SPECIFIED ABNORMAL FINDINGS OF BLOOD CHEMISTRY (4) Afib Current Visit: Yes Status: Acute Assessment & Plan: -Noted - patient states she had one episode of AFIB in 2019 with cardioversion, further workup with cardiology was negative, thought to be stress-induced, no further episodes, no home medications. EKG NS today VTE: lovenox PPI: protonix DISPO: most likely tomorrow Code(s): I48.91 - UNSPECIFIED ATRIAL FIBRILLATION
[2024-01-25] MEDS ORDERED: Zofran 4 MG/2 ML VIAL IV PRN (11:45)
[2024-01-25] MEDS: ENOXAPARIN SODIUM SQ SCH (12:45)
[2024-01-25] MEDS: PROTONIX 40 MG IV IV SCH (12:45)
[2024-01-25] MEDS: Lasix 40 MG/4 ML IV ONE (12:45)
[2024-01-25] MEDS: DUONEB 0.5-3 MG/3 ml Neb IH SCH (13:39)
[2024-01-25] MEDS: solu-MEDROL 40 MG, Sterile H2O 10 ml 1 ML IV SCH (22:40)
[2024-01-25] MEDS: TYLENOL 325 MG PO PRN (22:40)
[2024-01-25] MEDS ORDERED: PROVENTIL 2.5 MG/3 ML NEB IH PRN (23:11)
[2024-01-25] MEDS ORDERED: ZOLOFT 50 MG TABLET ONE (23:29)
[2024-01-25] MEDS: NON-FORMULARY ITEM (Sertraline Hcl [Zoloft] 100 MG Tablet) PO SCH (23:32)
[2024-01-26 04:41] LABS: Absolute Neutrophil Ct (ANC) 13.14 x10^3/uL (1.4-6.9); BASOPHIL % 0.1 % (0.0-0.4); Basophil (Absolute #) 0.01 x10^3/uL (0-0.4); Eosinophil (Absolute #) 0 x10^3/uL (0-0.5); Hematocrit 38.3 % (35-47); Hemoglobin 11.7 g/dL (12.0-16.0); IMMATURE GRAN # 0.08 x10^3u/L (0.00-0.03); IMMATURE GRAN % 0.6 % (0.00-0.4); Lymphocyte (Absolute #) 0.77 x10^3/uL (1.0-4.6); Lymphocytes % 5.4 % (24.0-44.0); Mean Cell Volume 76.8 fL (78-100); Mean Corpuscular Hemoglobin 23.4 pg (26-32); Mean Corpuscular Hgb Concent. 30.5 g/dL (32-36); Mean Platelet Volume 10.9 fL (7.5-11.0); Monocyte (Absolute #) 0.28 x10^3/uL (0.0-1.3); Neutrophil % 91.9 % (36.0-66.0); Platelet Count 297 x10^3/uL (150-450); Red Blood Count 4.99 x10^6/uL (4.1-5.4); Red Cell Distribution Width 14.9 % (11.5-14.0); White Blood Count 14.3 x10^3/uL (4.0-10.5)
[2024-01-26 05:16] LABS: ANION GAP 14.1 MEQ/L (5-15); BILIRUBIN,TOTAL 0.4 mg/dL (0.2-1.3); Calcium 9.1 mg/dL (8.4-10.2); Creatinine 1 0.57 mg/dL (0.52-1.04); EST GLOMERULAR FILTRATION RATE 110.6 ML/MIN; Potassium 4.4 mmol/L (3.5-5.1); Total Protein 7.4 g/dL (6.3-8.2)
--- NOTE | 2024-01-26 09:20 | XRAY ---
Indication: Short of breath. Pleural effusion. Comparison: September 29, 2022 Portable chest inflated and now clear. Heart and mediastinal structures within normal limits. Bony thorax intact. Impression: Nonacute chest.
[2024-01-26] MEDS: CLARITIN 10 MG PO SCH (09:28)
[2024-01-26] MEDS ORDERED: NON-FORMULARY ITEM (Fexofenadine Hcl [Allegra Allergy] 180 MG Tablet) PO SCH (10:00)
[2024-01-26 11:34] VITALS: BP 135/67; TEMP 96.3
--- NOTE | 2024-01-26 11:56 | PCM.DS ---
Discharge Summary Date of Admission: 01/25/24 08:40 Date of Discharge: 01/26/24 Admitting Physician: BARBY CONTRERAS MD Primary Care Provider: SUMAYA AVILES Allergies Allergies No Known Drug Allergies Allergy (Verified 01/25/24 08:51) Hospital Summary - Hospital Course Hospital Course: 01/26/24 is a 49 year old female with a pmhx of bronchitis, GERD, anxiety, AFIB (2020 with conversion/stress induced), and kidney stones who presented to ED 01/25/24 with complaints of a 5 day history of progressive shortness of breath, wheezing, and cough. She had been using her home nebulizer up to three times a day with minimal relief. Patient states she was in her usual state of health prior. Patient is on RA on admission. Diminished lung sounds with exp wheezing noted on admission. On admission labs remarkable for elevated D-Dimer and eosinophil count. Respiratory panel negative. CT chest negative for PE demonstrating bilateral R>L pleural effusions. EKG NS with no ST elevations/deviations. Patient admitted with pleural effusion,bronchitis, tr eated with steroid/nebs/lasix. Pt on room air at 96%. CXR today is clear w/o pleural effusions. Pt states she feels better and would like to go home. She reports she has breathing txs at home for her nebulizer but needs albuterol inhaler. Will d/c with steroid dose pack. She denies CP, SOB, abd. pain, N/V/D. - Vitals & Intake/Output Vital Signs: Vital Signs Temperature 96.3 F 01/26/24 11:33 Pulse Rate 88 01/26/24 11:33 Respiratory Rate 17 01/26/24 11:33 Blood Pressure 135/67 01/26/24 11:33 O2 Sat by Pulse Oximetry 99 01/26/24 11:33 Intake & Output: Intake & Output 01/23/24 01/24/24 01/25/24 01/26/24 11:59 11:59 11:59 11:59 Intake Total 450 1850 Balance 450 1850 Weight 142.2 kg - Lab Result Diagrams: 01/26/24 04:28 01/26/24 04:28 Lab Results-Last 24 Hrs: Lab Results-Last 24 Hours 05/02/24 05/03/24 05/03/24 Range/Units 12:14 04:28 04:28 WBC 14.3 H (4.0-10.5) x10^3/uL RBC 4.99 (4.1-5.4) x10^6/uL Hgb 11.7 L (12.0-16.0) g/dL Hct 38.3 (35-47) % MCV 76.8 L (78-100) fL MCH 23.4 L (26-32) pg MCHC 30.5 L (32-36) g/dL RDW 14.9 H (11.5-14.0) % Plt Count 297 (150-450) x10^3/uL MPV 10.9 (7.5-11.0) fL Gran % 91.9 H (36.0-66.0) % Immature Gran % (Auto) 0.6 H (0.00-0.4) % Nucleat RBC Rel Count 0.0 (0.00-0.1) % Eos # (Auto) 0 (0-0.5) x10^3/uL Immature Gran # (Auto) 0.08 H (0.00-0.03) x10^3u/L Absolute Lymphs (auto) 0.77 L (1.0-4.6) x10^3/uL Absolute Monos (auto) 0.28 (0.0-1.3) x10^3/uL Absolute Nucleated RBC 0.00 (0.00-0.01) x10^3u/L Lymphocytes % 5.4 L (24.0-44.0) % Monocytes % 2.0 (0.0-12.0) % Eosinophils % 0.0 (0.00-5.0) % Basophils % 0.1 (0.0-0.4) % Absolute Granulocytes 13.14 H (1.4-6.9) x10^3/uL Basophils # 0.01 (0-0.4) x10^3/uL Sodium 138 (135-145) mmol/L Potassium 4.4 (3.5-5.1) mmol/L Chloride 102 (98-107) mmol/L Carbon Dioxide 27 (22-30) mmol/L Anion Gap 14.1 (5-15) MEQ/L BUN 15 (7-17) mg/dL Creatinine 0.57 (0.52-1.04) mg/dL Estimated GFR 110.6 ML/MIN Glucose 188 H (74-106) mg/dL Calcium 9.1 (8.4-10.2) mg/dL Total Bilirubin 0.40 (0.2-1.3) mg/dL AST 23 (14-36) U/L ALT 25 (0-35) U/L Alkaline Phosphatase 107 (38-126) U/L Troponin I < 0.012 (0.000-0.033) ng/mL Serum Total Protein 7.4 (6.3-8.2) g/dL Albumin 4.0 (3.5-5.0) g/dL Micro Results-Entire Visit: Microbiology 01/25/24 06:57 Blood Culture - Preliminary Blood 01/25/24 07:04 Blood Culture - Preliminary Blood - Radiology Exams Ordered Rad Exams-Entire Visit: Radiology Procedures Category Date Time Status CHEST 1 VIEW (PORTABLE) Routine Exams 01/26/24 08:00 Completed CHEST WITH CONTRAST [CT] Stat Exams 01/25/24 05:30 Completed - Procedures and Test Procedures and Tests throughout Hospitalization: Therapy Orders & Screens 01/25/24 04:31 Respiratory Therapy Assessment DAILY Comment: 01/25/24 11:45 Respiratory Therapy Consult ONCE Comment: Reason For Exam: Diagnosis: bronchitis; bronchospasms Discharge Exam General Appearance: no apparent distress, alert Neurologic Exam: alert, oriented x 3, cooperative, normal mood/affect, nml cerebellar function, sensation nml, No motor deficits Eye Exam: PERRL, EOMI, eyes nml inspection Ears, Nose, Throat Exam: normal ENT inspection, pharynx normal, moist mucous membranes Neck Exam: normal inspection, non-tender, supple, full range of motion Respiratory Exam: normal breath sounds, lungs clear, No respiratory distress Cardiovascular Exam: regular rate/rhythm, normal heart sounds Gastrointestinal/Abdomen Exam: soft, No tenderness, No mass Pelvic Exam: deferred Rectal Exam: deferred Back Exam: normal inspection, normal range of motion, No CVA tenderness, No vertebral tenderness Extremity Exam: normal inspection, normal range of motion Skin Exam: normal color, warm, dry Final Diagnosis/Problem List - Final Discharge Diagnosis/Problem (1) Acute bronchitis with bronchospasm Current Visit: Yes Status: Acute Assessment & Plan: -on RA, supplemental oxygen with spo2 goal >92% -RT eval -DuoNebs/bronchodilator -solumedrol -will defer abx / - D/C with steroid dose pack - RA 96% - denies SOB - albuterol inhaler sent in at d/c. - will need f/u with pulm OP for PFT studies.- unable to make appointment at this time d/t insurance. Code(s): J20.9 - ACUTE BRONCHITIS, UNSPECIFIED (2) Afib Current Visit: Yes Status: Acute Assessment & Plan: -Noted - patient states she had one episode of AFIB in 2019 with cardioversion, further workup with cardiology was negative, thought to be stress-induced, no further episodes, no home medications. EKG NSR Code(s): I48.91 - UNSPECIFIED ATRIAL FIBRILLATION (3) Elevated d-dimer Current Visit: Yes Status: Acute Assessment & Plan: - D-Dimer 2.93 -CT negative for PE -most likely secondary to resp distress Code(s): R79.89 - OTHER SPECIFIED ABNORMAL FINDINGS OF BLOOD CHEMISTRY (4) Pleural effusion Current Visit: Yes Status: Resolved Assessment & Plan: - As seen on CT - CXR today negative Code(s): J90 - PLEURAL EFFUSION, NOT ELSEWHERE CLASSIFIED (5) Obstructive sleep apnea Current Visit: Yes Status: Chronic Assessment & Plan: - will need OP sleep study - attempted to order but pt does not have insurance at this time. - + witnessed apneas by nursing staff at night. Code(s): G47.33 - OBSTRUCTIVE SLEEP APNEA (ADULT) (PEDIATRIC) (6) Morbid obesity with BMI of 45.0-49.9, adult Current Visit: Yes Status: Chronic Assessment & Plan: - advised diet and exercise control Code(s): E66.01 - MORBID (SEVERE) OBESITY DUE TO EXCESS CALORIES; Z68.42 - BODY MASS INDEX [BMI] 45.0-49.9, ADULT - Discharge Discharge Date: 01/26/24 Disposition: Home, Self-Care Condition: Stable Prescriptions: Continue Sertraline HCl [Zoloft] 100 mg PO HS Omeprazole 40 mg PO HS Fexofenadine HCl [Triny Allergy] 180 mg PO DAILY Albuterol 2.5 mg/3 ml Neb [Proventil 2.5 mg/3 ml Neb] 2.5 mg IH TID PRN PRN PRN Reason: Shortness Of Breath/Wheezing Outpatient Orders: Sleep Study Facility: [facility]. Hosp, Location: RESPIRATORY THERAPY Follow up with: SUMAYA AVILES MD [Primary Care Provider] - 02/01/24 2:15 pm
[2024-01-26 13:10] VITALS: PULSE 86; RESP 18; O2SAT 96
[2024-01-26] MEDS ORDERED: Protonix 40MG Tablet PO SCH (22:00)
[2024-01-26] MEDS ORDERED: NON-FORMULARY ITEM (Omeprazole [Omeprazole] 40 MG Capsule.Dr) PO SCH (22:00)
[2024-01-26] MEDS ORDERED: ZOLOFT 50 MG TABLET PO SCH (22:00)
== END 2024-01-26 14:30 | disposition home or self-care (01) ==
LOC: ED 04:06 → MED SURG 08:40
PROVIDERS: ADMIT Internal Medicine; ATTEND Internal Medicine
DX: J20.9 Acute bronchitis, unspecified (principal); I48.91 Unspecified atrial fibrillation; R79.89 Other specified abnormal findings of blood chemistry; J90 Pleural effusion, not elsewhere classified; G47.33 Obstructive sleep apnea (adult) (pediatric); E66.01 Morbid (severe) obesity due to excess calories; F41.9 Anxiety disorder, unspecified; Z68.42 Body mass index [BMI] 45.0-49.9, adult; Z79.899 Other long term (current) drug therapy
CPT/HCPCS: 0241U; 36000; 36415; 71045; 71260; 80053; 83880; 84484; 84703; 85025; 85379; 87040; 93005; 93041; 94640; 94760; 94762; 96360; 96374; 99285; Q3014; J1650; J1940; J2919; J3475; J7609; A9270-GY

== ENCOUNTER 2024-05-21 07:37 | Emergency (ER) | payer BC ==
[2024-05-21 07:53] VITALS: TEMP 97
--- NOTE | 2024-05-21 08:05 | ERPHSYRPT ---
- History of Present Illness Time Seen by Provider: 05/21/24 08:01 Source: patient Exam Limitations: no limitations Patient Subjective Stated Complaint: Pt states "I was bringing my mom in here and I got hot and flushed and my right side hurt and I got nauseated." Triage Nursing Assessment: PT presented alert and oriented X 3, skin pwd. Pt ambulates with an upright steady gait, able to speakin clear full sentences. PT resting comfortably on the bed. Physician History: 49-year-old female presents to our ED for evaluation of feeling shaky and transiently dizzy. Symptoms occurred just prior to arrival. patient states she was here accompanying her mother on a clinic visit. Patient developed acute onset right flank pain. The pain was coupled with nausea and dizziness. Patient states she has baseline anxiety. The acute onset of pain may have triggered her anxiety. Patient feels shaky and uneasy. Patient has no significant past medical history otherwise healthy. No active flank pain at this time. Dizziness has resolved. Mild nausea that is resolving as well. No urinary complaints. No hematuria dysuria or frequency. No back pain. No trauma no fever no rash. Patient otherwise feels well. She voices no other complaints or concerns at this time. Patient reports he recently had a cath procedure which was normal per patient Portions of this note were created with voice recognition technology. There may be grammatical, spelling, punctuation or sound alike errors Timing/Duration: today Severity: moderate Modifying Factors: Improves With: nothing Associated Symptoms: nausea, No vomiting, No fever Allergies/Adverse Reactions: No Known Drug Allergies Allergy (Verified 02/13/24 17:26) Home Medications: Omeprazole 40 mg PO HS 09/12/22 [History] Sertraline HCl [Zoloft] 100 mg PO HS 09/12/22 [History] Albuterol 2.5 mg/3 ml Neb [Proventil 2.5 mg/3 ml Neb] 2.5 mg IH QID PRN PRN 01/25/24 [History] Budesonide [Pulmicort Flexhaler] 1 puff PO BID 02/13/24 [History] Cetirizine HCl [Zyrtec] 10 mg PO DAILY 02/13/24 [History] Hx Tetanus, Diphtheria Vaccination/Date Given: Yes Hx Influenza Vaccination/Date Given: No Hx Pneumococcal Vaccination/Date Given: No Immunizations Up to Date: No Travel Risk - International Travel Have you traveled outside of the country in past 3 weeks: No - Emerging Infectious Disease Are you exhibiting symptoms associated with any current EIDs: No Symptoms: Cough: New Onset, Shortness of Breath - Review of Systems Constitutional: No Symptoms, No Fever, No Chills Eyes: No Symptoms Ears, Nose, & Throat: No Symptoms Respiratory: No Symptoms, No Cough, No Dyspnea Cardiac: No Symptoms, No Chest Pain, No Edema, No Syncope Abdominal/Gastrointestinal: No Symptoms, No Abdominal Pain, No Nausea, No Vomiting, No Diarrhea Genitourinary Symptoms: No Symptoms, No Dysuria Musculoskeletal: No Symptoms, No Back Pain, No Neck Pain Skin: No Symptoms, No Rash Neurological: No Symptoms, No Dizziness, No Focal Weakness, No Sensory Changes Psychological: No Symptoms Endocrine: No Symptoms Hematologic/Lymphatic: No Symptoms Immunological/Allergic: No Symptoms All Other Systems: Reviewed and Negative - Past Medical History Pertinent Past Medical History: Yes Neurological History: No Pertinent History ENT History: No Pertinent History Cardiac History: No Pertinent History Respiratory History: Bronchitis Endocrine Medical History: No Pertinent History Musculoskeletal History: No Pertinent History GI Medical History: GERD, Gallbladder Disease History: Other Psycho-Social History: Anxiety Female Reproductive Disorders: No Pertinent History Other Medical History: afib: cardioversion in 2019, 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 (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), hx of kidney stones, allergies - Past Surgical History Past Surgical History: Yes Neuro Surgical History: No Pertinent History Cardiac: No Pertinent History Respiratory: No Pertinent History Gastrointestinal: Cholecystectomy Genitourinary: No Pertinent History Musculoskeletal: Other Female Surgical History: No Pertinent History Other Surgical History: lithotripsy, facial sx as child from dog bite - Female History Hx Last Menstrual Period: 05/04/2024 - Social History Smoking Status: Never smoker Exposure to second hand smoke: Yes Drug Use: none Patient Lives Alone: No - Social Determinants of Health Will the patient participate in the screening: Yes Do you worry about a steady place to live?: No Do you have any problems with any of the following?: No known problems In the past 12 months,have you had to go without utilities?: No Transportation Issues: No Has anyone in your support network made you feel unsafe?: No Have you or anyone in your house had to go without enough: No - Nursing Vital Signs Nursing Vital Signs: Initial Vital Signs Temperature 97.0 F 05/21/24 07:48 Pulse Rate 72 05/21/24 07:48 Respiratory Rate 18 05/21/24 07:48 Blood Pressure 144/95 05/21/24 07:48 O2 Sat by Pulse Oximetry 98 05/21/24 07:48 Pain Scale Pain Intensity 0 - Physical Exam General Appearance: no apparent distress, alert Eye Exam: PERRL/EOMI, eyes nml inspection Ears, Nose, Throat Exam: normal ENT inspection, TMs normal, pharynx normal, moist mucous membranes Neck Exam: normal inspection, non-tender, supple, full range of motion Respiratory Exam: normal breath sounds, lungs clear, airway intact, No respiratory distress Cardiovascular Exam: regular rate/rhythm, normal heart sounds, normal peripheral pulses Gastrointestinal/Abdomen Exam: soft, normal bowel sounds, No tenderness, No mass Back Exam: normal inspection, normal range of motion, No CVA tenderness, No vertebral tenderness Extremity Exam: normal inspection, normal range of motion, pelvis stable Neurologic Exam: alert, oriented x 3, cooperative, normal mood/affect, sensation nml, No motor deficits Skin Exam: normal color, warm, dry, No rash Lymphatic Exam: No adenopathy SpO2 Interpretation: normal SpO2: 98 O2 Delivery: Room Air - Course Nursing assessment & vital signs reviewed: Yes EKG Interpreted by Me: RATE (66), Sinus Rhythm, NORMAL AXIS, NORMAL INTERVALS, NORMAL QRS - Radiology Exams Chest X-ray Interpretation: Teleradiologist Report (Cardiomegaly, pleural effusion no pulmonary congestion) - CT Exams Abdomen/Pelvis CT Interpretation: Tele-radiologist Report (Pleural effusion cardiomegaly new hepatic lesion. Patient will require outpatient CAT scan for further evaluation and characterization of this lesion) Ordered Tests: Active Orders 24 hr Category Date Time Status Compressor Mechanic STAT Care 05/21/24 07:51 Active EKG-ER Only STAT Care 05/21/24 07:51 Active IV Insertion STAT Care 05/21/24 07:51 Active Pulse Oximetry (ED) STAT Care 05/21/24 07:51 Active ABDOMEN AND PELVIS W/0 CONTRAS [CT] Stat Exams 05/21/24 07:52 Completed CHEST 1 VIEW (PORTABLE) Stat Exams 05/21/24 09:48 Completed CBC W DIFF Stat Lab 05/21/24 08:00 Completed CMP Stat Lab 05/21/24 08:00 Completed HCG QUALITATIVE, URINE Stat Lab 05/21/24 10:14 Completed NT PRO BNPII Stat Lab 05/21/24 08:00 Completed TROPONIN Q4H Lab 05/21/24 08:00 Completed TROPONIN Q4H Lab 05/21/24 10:35 Completed TROPONIN Q4H Lab 05/21/24 16:00 Ordered UA W/RFX UR CULTURE Stat Lab 05/21/24 10:14 Completed Medication Summary Discontinued Medications Generic Name Dose Route Start Last Admin Trade Name Kate PRN Reason Stop Dose Admin Sodium Chloride 1,000 mls @ 999 mls/hr 05/21/24 07:51 05/21/24 09:13 Sodium Chloride 0.9% 1000 Ml IV 05/21/24 08:51 Infused .Q1H1M STA Infusion Sodium Chloride Confirm 05/21/24 08:06 Sodium Chloride 0.9% 1000 Ml Administered 05/21/24 08:07 Dose 1,000 mls @ ud .ROUTE .STK-MED ONE Ketorolac Tromethamine 30 mg 05/21/24 08:05 05/21/24 08:08 Ketorolac Tromethamine 30 Mg/Ml Inj IV 05/21/24 08:06 30 mg STAT ONE Administration Ketorolac Tromethamine Confirm 05/21/24 08:07 Ketorolac Tromethamine 30 Mg/Ml Inj Administered 05/21/24 08:08 Dose 30 mg .ROUTE .STK-MED ONE Ondansetron HCl 4 mg 05/21/24 08:05 05/21/24 08:08 Ondansetron Hcl 4 Mg/2 Ml Vial IV 05/21/24 08:06 4 mg STAT ONE Administration Ondansetron HCl Confirm 05/21/24 08:07 Ondansetron Hcl 4 Mg/2 Ml Vial Administered 05/21/24 08:08 Dose 4 mg .ROUTE .STK-MED ONE Lab/Rad Data: Laboratory Result Diagrams 05/21/24 08:00 05/21/24 08:00 Laboratory Results 05/21/24 05/21/24 05/21/24 Range/Units 10:35 10:14 10:14 WBC (3.98-10.04) x10^3/uL RBC (3.93-5.22) x10^6/uL Hgb (11.2-15.7) g/dL Hct (34.1-44.9) % MCV (79.4-94.8) fL MCH (25.6-32.2) pg MCHC (32.2-35.5) g/dL RDW (11.7-14.4) % Plt Count (182-369) x10^3/uL MPV (9.4-12.3) fL Gran % (34.0-71.1) % Immature Gran % (Auto) (0.001-0.429) % Nucleat RBC Rel Count (0.00-0.2) % Eos # (Auto) (0.04-0.36) x10^3/uL Immature Gran # (Auto) (0.001-0.031) x10^3u/L Absolute Lymphs (auto) (1.18-3.74) x10^3/uL Absolute Monos (auto) (0.24-0.86) x10^3/uL Absolute Nucleated RBC (0.00-0.012) x10^3u/L Lymphocytes % (19.3-51.7) % Monocytes % (4.7-12.5) % Eosinophils % (0.7-5.8) % Basophils % (0.1-1.2) % Absolute Granulocytes (1.56-6.13) x10^3/uL Basophils # (0.01-0.08) x10^3/uL Sodium (135-145) mmol/L Potassium (3.5-5.1) mmol/L Chloride (98-107) mmol/L Carbon Dioxide (22-30) mmol/L Anion Gap (5-15) MEQ/L BUN (7-17) mg/dL Creatinine (0.52-1.04) mg/dL Estimated GFR ML/MIN Glucose (74-106) mg/dL Calcium (8.4-10.2) mg/dL Total Bilirubin (0.2-1.3) mg/dL AST (14-36) U/L ALT (0-35) U/L Alkaline Phosphatase (38-126) U/L Troponin I < 0.012 (0.000-0.033) ng/mL NT-Pro-B Natriuret Pep (<300) pg/mL Serum Total Protein (6.3-8.2) g/dL Albumin (3.5-5.0) g/dL Urine Color Yellow (Yellow) Urine Appearance Clear (Clear) Urine pH 6.0 (4.6-8.0) Ur Specific [place] 1.020 (1.005-1.030) Urine Protein Negative (Negative) Urine Glucose (UA) Negative (Negative) mg/dL Urine Ketones Negative (Negative) Urine Blood Negative (Negative) Urine Nitrite Negative (Negative) Urine Bilirubin Negative (Negative) Urine Urobilinogen 0.2 (0.2) mg/dL Ur Leukocyte Esterase Negative (Negative) U Hyaline Cast (Auto) NONE SEEN (0-2) /LPF Urine Microscopic RBC 0-2 (0-5) /HPF Urine Microscopic WBC 0-2 (0-5) /HPF Ur Epithelial Cells Moderate A (None Seen) /HPF Urine Bacteria Rare A (None Seen) /HPF Urine Culture Reflexed NO (NO) Urine HCG, Qual NEGATIVE (NEGATIVE) 05/21/24 05/21/24 05/21/24 Range/Units 08:00 08:00 08:00 WBC (3.98-10.04) x10^3/uL RBC (3.93-5.22) x10^6/uL Hgb (11.2-15.7) g/dL Hct (34.1-44.9) % MCV (79.4-94.8) fL MCH (25.6-32.2) pg MCHC (32.2-35.5) g/dL RDW (11.7-14.4) % Plt Count (182-369) x10^3/uL MPV (9.4-12.3) fL Gran % (34.0-71.1) % Immature Gran % (Auto) (0.001-0.429) % Nucleat RBC Rel Count (0.00-0.2) % Eos # (Auto) (0.04-0.36) x10^3/uL Immature Gran # (Auto) (0.001-0.031) x10^3u/L Absolute Lymphs (auto) (1.18-3.74) x10^3/uL Absolute Monos (auto) (0.24-0.86) x10^3/uL Absolute Nucleated RBC (0.00-0.012) x10^3u/L Lymphocytes % (19.3-51.7) % Monocytes % (4.7-12.5) % Eosinophils % (0.7-5.8) % Basophils % (0.1-1.2) % Absolute Granulocytes (1.56-6.13) x10^3/uL Basophils # (0.01-0.08) x10^3/uL Sodium 138 (135-145) mmol/L Potassium 3.7 (3.5-5.1) mmol/L Chloride 104 (98-107) mmol/L Carbon Dioxide 24 (22-30) mmol/L Anion Gap 13.2 (5-15) MEQ/L BUN 7 (7-17) mg/dL Creatinine 0.60 (0.52-1.04) mg/dL Estimated GFR 109.3 ML/MIN Glucose 128 H (74-106) mg/dL Calcium 9.0 (8.4-10.2) mg/dL Total Bilirubin 0.50 (0.2-1.3) mg/dL AST 31 (14-36) U/L ALT 27 (0-35) U/L Alkaline Phosphatase 117 (38-126) U/L Troponin I < 0.012 (0.000-0.033) ng/mL NT-Pro-B Natriuret Pep 79.6 (<300) pg/mL Serum Total Protein 6.7 (6.3-8.2) g/dL Albumin 3.9 (3.5-5.0) g/dL Urine Color (Yellow) Urine Appearance (Clear) Urine pH (4.6-8.0) Ur Specific [place] (1.005-1.030) Urine Protein (Negative) Urine Glucose (UA) (Negative) mg/dL Urine Ketones (Negative) Urine Blood (Negative) Urine Nitrite (Negative) Urine Bilirubin (Negative) Urine Urobilinogen (0.2) mg/dL Ur Leukocyte Esterase (Negative) U Hyaline Cast (Auto) (0-2) /LPF Urine Microscopic RBC (0-5) /HPF Urine Microscopic WBC (0-5) /HPF Ur Epithelial Cells (None Seen) /HPF Urine Bacteria (None Seen) /HPF Urine Culture Reflexed (NO) Urine HCG, Qual (NEGATIVE) 05/21/24 Range/Units 08:00 WBC 7.0 (3.98-10.04) x10^3/uL RBC 5.14 (3.93-5.22) x10^6/uL Hgb 11.9 (11.2-15.7) g/dL Hct 38.7 (34.1-44.9) % MCV 75.3 L (79.4-94.8) fL MCH 23.2 L (25.6-32.2) pg MCHC 30.7 L (32.2-35.5) g/dL RDW 15.0 H (11.7-14.4) % Plt Count 246 (182-369) x10^3/uL MPV 10.7 (9.4-12.3) fL Gran % 72.7 H (34.0-71.1) % Immature Gran % (Auto) 0.4 (0.001-0.429) % Nucleat RBC Rel Count 0.0 (0.00-0.2) % Eos # (Auto) 0.26 (0.04-0.36) x10^3/uL Immature Gran # (Auto) 0.03 (0.001-0.031) x10^3u/L Absolute Lymphs (auto) 1.04 L (1.18-3.74) x10^3/uL Absolute Monos (auto) 0.55 (0.24-0.86) x10^3/uL Absolute Nucleated RBC 0.00 (0.00-0.012) x10^3u/L Lymphocytes % 14.8 L (19.3-51.7) % Monocytes % 7.8 (4.7-12.5) % Eosinophils % 3.7 (0.7-5.8) % Basophils % 0.6 (0.1-1.2) % Absolute Granulocytes 5.09 (1.56-6.13) x10^3/uL Basophils # 0.04 (0.01-0.08) x10^3/uL Sodium (135-145) mmol/L Potassium (3.5-5.1) mmol/L Chloride (98-107) mmol/L Carbon Dioxide (22-30) mmol/L Anion Gap (5-15) MEQ/L BUN (7-17) mg/dL Creatinine (0.52-1.04) mg/dL Estimated GFR ML/MIN Glucose (74-106) mg/dL Calcium (8.4-10.2) mg/dL Total Bilirubin (0.2-1.3) mg/dL AST (14-36) U/L ALT (0-35) U/L Alkaline Phosphatase (38-126) U/L Troponin I (0.000-0.033) ng/mL NT-Pro-B Natriuret Pep (<300) pg/mL Serum Total Protein (6.3-8.2) g/dL Albumin (3.5-5.0) g/dL Urine Color (Yellow) Urine Appearance (Clear) Urine pH (4.6-8.0) Ur Specific [place] (1.005-1.030) Urine Protein (Negative) Urine Glucose (UA) (Negative) mg/dL Urine Ketones (Negative) Urine Blood (Negative) Urine Nitrite (Negative) Urine Bilirubin (Negative) Urine Urobilinogen (0.2) mg/dL Ur Leukocyte Esterase (Negative) U Hyaline Cast (Auto) (0-2) /LPF Urine Microscopic RBC (0-5) /HPF Urine Microscopic WBC (0-5) /HPF Ur Epithelial Cells (None Seen) /HPF Urine Bacteria (None Seen) /HPF Urine Culture Reflexed (NO) Urine HCG, Qual (NEGATIVE) - Progress Progress: improved Progress Note: 49-year-old female presents to our ED for evaluation of flank pain dizziness nausea. Flank pain resolved prior to arrival. Pain described as an ache that is localized. Physical exam essentially nonremarkable. No palpable discomfort. Lungs are clear. Heart sounds normal. No chest pain. No shortness of breath. Normal vitals. Workup revealed cardiomegaly with pleural effusion. Troponin negative x 2. Chest x-ray negative for pulmonary congestion. BNP normal as well. Patient reports a recent heart cath procedure which was report ed as normal. 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 EKG normal sinus rhythm. Patient states he is ready for discharge. We called her primary care doctor, Dr. Aviles and arranged follow-up with her primary care physician. She will be seen this for a reassessment and ordering of outpatient CT abdomen pelvis with contrast. Patient voices no other complaints or concerns at this time. Portions of this note were created with voice recognition technology. There may be grammatical, spelling, punctuation or sound alike errors Complexity problem addressed is moderate acute complicated. No critical care time. Complexity of data reviewed and analyzed is moderate. Test ordered test reviewed results analyzed and correlated clinically with history and physical exam. Risk of complication and or risk of morbidity/mortality patient management is low. Vital stable. Time spent to discharge patient approximately 20 minutes. Plan of care established for shared decision making. No social determinants of health presents impede follow-up. Portions of this note were created with voice recognition technology. There may be grammatical, spelling, punctuation or sound alike errors 05/21/24 11:18 Counseled pt/family regarding: lab results, diagnosis, need for follow-up, rad results - Departure Departure Disposition: Home Clinical Impression: Cardiomegaly, Pleural effusion, Hepatic lesion Condition: Stable Critical Care Time: No Referrals: SUMAYA AVILES MD [Primary Care Provider] - Follow up/PCP as directed Instructions: Pleural effusion Additional Instructions: An enlarged heart and small fluid around her lungs were observed on today's study. Please follow-up with your knitter helper for further evaluation. However the testing shows you are not in heart failure. Also a lesion was observed on your liver. You will require an outpatient CAT scan with contrast to further characterize this lesion. Follow-up with your family doctor for a outpatient CAT scan with contrast to observe this lesion further Discharge/Care Plan MARY ODELL was seen on 05/21/24 in the Emergency Room. The patient was counseled regarding Diagnosis,Lab results, Imaging studies, need for follow up and when to return to the Emergency Room. Prescriptions given: Discharge Note I have spoken with the patient and/or caregivers. I have explained the patient's condition, diagnosis and treatment plan based on the information available to me at this time. I have answered the patient's and/or caregiver's questions and addressed any concerns. The patient and/or caregivers have as good understanding of the patient's diagnosis, condition and treatment plan as can be expected at this point. The vital signs have been stable. The patient's condition is stable and appropriate for discharge from the emergency department. The patient will pursue further outpatient evaluation with the primary care physician or other designated or consulting physician as outlined in the discharge instructions. The patient and/or caregivers are agreeable to this plan of care and follow-up instructions have been explained in detail. The patient and/or caregivers have received these instruction. The patient/and or caregivers are aware that any significant change in condition or worsening of symptoms should prompt an immediate return to this or the closest emergency department or call 911.
[2024-05-21] MEDS ORDERED: Sodium Chloride 0.9% 1000 ML 1,000 ML ONE (08:06)
[2024-05-21 08:07] LABS: Absolute Neutrophil Ct (ANC) 5.09 x10^3/uL (1.56-6.13); BASOPHIL % 0.6 % (0.1-1.2); Basophil (Absolute #) 0.04 x10^3/uL (0.01-0.08); Eosinophil % 3.7 % (0.7-5.8); Eosinophil (Absolute #) 0.26 x10^3/uL (0.04-0.36); Hematocrit 38.7 % (34.1-44.9); Hemoglobin 11.9 g/dL (11.2-15.7); IMMATURE GRAN # 0.03 x10^3u/L (0.001-0.031); IMMATURE GRAN % 0.4 % (0.001-0.429); Lymphocyte (Absolute #) 1.04 x10^3/uL (1.18-3.74); Lymphocytes % 14.8 % (19.3-51.7); Mean Cell Volume 75.3 fL (79.4-94.8); Mean Corpuscular Hemoglobin 23.2 pg (25.6-32.2); Mean Corpuscular Hgb Concent. 30.7 g/dL (32.2-35.5); Mean Platelet Volume 10.7 fL (9.4-12.3); Monocyte (Absolute #) 0.55 x10^3/uL (0.24-0.86); Monocytes % 7.8 % (4.7-12.5); Neutrophil % 72.7 % (34.0-71.1); Platelet Count 246 x10^3/uL (182-369); Red Blood Count 5.14 x10^6/uL (3.93-5.22)
[2024-05-21] MEDS ORDERED: Zofran 4 MG/2 ML VIAL ONE (08:07)
[2024-05-21] MEDS ORDERED: TORAdol 30 mg Injection ONE (08:07)
[2024-05-21] MEDS: Sodium Chloride 0.9% 1000 ML 1,000 ML IV STA (08:07)
[2024-05-21] MEDS: Zofran 4 MG/2 ML VIAL IV ONE (08:08)
[2024-05-21] MEDS: TORAdol 30 mg Injection IV ONE (08:08)
[2024-05-21 08:23] LABS: ALBUMIN 3.9 g/dL (3.5-5.0); ANION GAP 13.2 MEQ/L (5-15); BILIRUBIN,TOTAL 0.5 mg/dL (0.2-1.3); Creatinine 1 0.6 mg/dL (0.52-1.04); EST GLOMERULAR FILTRATION RATE 109.3 ML/MIN; Potassium 3.7 mmol/L (3.5-5.1); Total Protein 6.7 g/dL (6.3-8.2)
--- NOTE | 2024-05-21 09:28 | XRAY ---
Indication: Pain. Multiple contiguous axial images obtained through the chest without contrast. Comparison: September 25, 2023 Lung bases again demonstrates small nonspecific left effusion with subsegmental atelectasis/scarring. New moderate nonspecific right effusion with compressive atelectasis. Heart is now enlarged. Noncontrasted stomach and bowel loops appear nonobstructed with normal appendix. Left lobe liver demonstrates new irregular hypodense lesion measuring at least 3.2 x 4.3 cm in greatest axial dimension and at least 8 cm in CC dimension. Lack of IV contrast precludes further characterization. Again incidental nonobstructing right renal punctate calculus, left upper pole renal cyst, 15 cm splenomegaly, and cholecystectomy. No free fluid/air. Remaining liver, pancreas, spleen, adrenal glands, kidneys, ureters, bladder, uterus, and aorta are unremarkable for noncontrast exam. Osseous structures intact again with mild degenerative changes throughout spine and both hips. Impression: 1. Again small left effusion. New cardiomegaly with moderate right effusion. Rule out cardiac decompensation/CHF. 2. New irregular hepatic hypodense lesion. Recommend CT liver with contrast exam. 3. Chronic findings including nonobstructing right renal punctate calculus, left renal cysts, splenomegaly, and chronic bony findings.
[2024-05-21 10:20] LABS: HCG URINE TEST NEGATIVE (NEGATIVE)
[2024-05-21 10:22] LABS: Appearance Clear (Clear); Bacteria Rare /HPF (None Seen); Bilirubin Negative (Negative); Blood Negative (Negative); Epithelial Cells Moderate /HPF (None Seen); Glucose, Urine Negative (Negative); Hyaline Casts NONE SEEN /LPF (0-2); Ketones Negative (Negative); Leukocyte Esterase Negative (Negative); Nitrite Negative (Negative); Protein,Urine Dip Negative (Negative); RBC 0-2 /HPF (0-5); Urobilinogen 0.2 mg/dL (0.2); WBC 0-2 /HPF (0-5)
[2024-05-21 10:25] LABS: ADD URINE CULTURE? NO (NO)
[2024-05-21 11:07] VITALS: BP 101/78; PULSE 56; RESP 14
--- NOTE | 2024-05-21 11:12 | XRAY ---
Indication: Abnormal pulmonary finding. Comparison: January 26, 2024 Portable chest now demonstrates cardiomegaly and CT proven small bibasilar effusions. Remaining lungs and bony thorax unremarkable.
[2024-05-21 11:18] VITALS: O2SAT 98
== END 2024-05-21 11:42 | disposition home or self-care (01) ==
LOC: ED 07:37
DX: I51.7 Cardiomegaly (principal); J90 Pleural effusion, not elsewhere classified; K76.9 Liver disease, unspecified; R42 Dizziness and giddiness; Z79.899 Other long term (current) drug therapy
CPT/HCPCS: 36000; 36415; 71045; 74176; 80053; 81001; 81025; 83880; 84484; 85025; 93005; 93041; 94760; 96374; 96375; 99284; J1885; J2405